=== PATIENT | female | born 1935 | race Caucasian/White ===

== ENCOUNTER 2024-10-02 19:36 | Inpatient (IN) | payer MEDICARE, SELFPAY ==
[2024-10-02] VITALS (22 sets, daily range): BP systolic 164–221; BP diastolic 57–135; PULSE 81–114; RESP 16–27; TEMP 36.4; O2SAT 93–97
--- NOTE | 2024-10-02 19:30 | RT.EKG_ITS ---
APPROVED REPORT Exam: Resting ECG Reason for Exam: chest pressure Patient Location: E HR:99 bpm ECG Measurements Heart Rate 99 AXIS NE 152 P 51 QRSd 88 QRS 39 QT 333 T 28 QTc 427 Conclusion Sinus rhythm...normal P axis, V-rate 60- 99
--- NOTE | 2024-10-02 19:45 | DI.CT_ITS ---
Exam(s) CT BRAIN NECK CTA EXAM: CT BRAIN NECK CTA CLINICAL HISTORY: dizziness, hypertension, headache. TECHNIQUE: Imaging Protocol: Axial CT angiography was performed with multi-slice acquisition and mu lti-planar and/or 3D reconstructions. CONTRAST MATERIAL: Intravenous: Omnipaque 350 Contrast volume:70 mL COMPARISON: CT CT CTA HEAD/NECK W/ AND/OR WO CONT from 09/12/2024 FINDINGS: CTA Neck W: Aortic arch anatomy: The aortic arch anatomy is conventional and there is no significant stenosis at the origin of the great vessels off of the aortic arch. No intimal flap evident. Anterior circulation: There is some noncalcified medial wall plaque again noted in the right common carotid artery. At the level the right carotid bifurcation there is both calcified and noncalcified plaque which extends int o the proximal left ICA and appears similar to the previous outside study of 09/12/2024. The amount o f stenosis at this level is estimated at approximately 50-69 percent (moderate). Above this level the right ICA in the upper neck is patent as well as in the skull base-carotid canal. There is also some plaque on the medial wall of the ascending left common carotid artery. Approximate ly 30 percent stenosis. There is mild mixed plaque evident at the left carotid bifurcation and proxim al left ICA but less than 20 percent stenosis. The left ICA in the upper neck is patent as well as in the skull base-carotid canal. Posterior circulation: Both vertebral arteries originate in conventional fashion off of the subclavian arteries and there is no obvious significant stenosis at the origin of the vertebral arteries. Both vertebral arteries exhibit normal luminal diameters within the foramen transversarium. The left vertebral artery is dominant. No evidence of vertebral artery significant stenosis nor dissection. Both vertebral arteries contribute to the formation of the basilar artery at the skull base. CTA Brain W: Anterior circulation: Both internal carotid arteries are patent in the skull base-carotid canals as well as within the cave rnous sinuses. Supraclinoid aspects of both ICAs are patent. The anterior cerebral arteries are both patent and fed by the right A1 segment and anterior communicating artery. The left A1 segment is atretic. There is n o evidence of aneurysm at the level the anterior communicating artery. Both middle cerebral arteries are patent with no evidence of significant stenosis nor intraluminal th rombus. There also no significant aneurysms of these vessels. Posterior circulation: The basilar artery ascends without significant stenosis. Distally it gives off patent superior cerebe llar arteries. Above this level it terminates as a patent right posterior cerebral artery. The left p osterior cerebral artery is fed by posterior communicating artery on the left side of the nav[place]-of-W illis/persistent circulation. There does appear to be a mild-moderate stenosis in the P1 segment of the right posterior cerebral ar ryan. There is no evidence of aneurysm at the tip of the basilar artery nor elsewhere in the [id number]-ch-[id number] is. CT BRAIN: There is no evidence of intracranial hemorrhage, mass effect, or shift of midline structures. There are no extra-axial fluid collections. Ventricles are not enlarged or shifted. There are no ring enh ancing lesions in the brain and no abnormal meningeal enhancement. There is bilateral periventricular hypodensity consistent with chronic small vessel disease. No evidence of obvious acute infarct. IMPRESSION: 1. There is moderate (50-69 percent) stenosis at the right carotid bulb again noted, similar to previ ous. Lesser amount of stenosis is seen in the left carotid artery in the neck. 2. Patent vertebral arteries. No significant stenosis nor dissection of the vertebral arteries in th e neck. 3. 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 The anterior cerebral arteries are both fed by the right A1 segment/anterior communicating artery. 4. There is a mild-moderate focal stenosis again noted in the P1 segment of the right posterior cereb ral artery. The left posterior cerebral artery is fed by a posterior communicating artery on the left side of the upjmdk-vi-Siemxu/persistent circulation. No aneurysms. No ring enhancing lesions in the brain. No evidence of obvious infarct nor acute intrac ranial hemorrhage, intra or extra-axial. Preliminary virtual Radiology report was reviewed. RADIATION DOSE DELIVERED: 2,119.14mGy.cm Total DLP DATA REPOSITORY: All CT scans at this facility are submitted to the National Radiology Data Registry (NRDR) Dose Index Registry (DIR) with the [employer] (ACR). RADIATION OPTIMIZATION: All CT scans at this facility use at least one of these dose optimization te chniques: automated exposure control; mA and/or kV adjustment per patient size (includes targeted exa ms where dose is matched to clinical indication); or iterative reconstruction.
--- NOTE | 2024-10-02 19:58 | W.ED.GENAD ---
Discharge Plan Disposition Patient Disposition: Admit to [facility] Condition: Stable Discharge Details Chief Complaint: Chest Pain Clinical Impression: Hypertensive urgency, Uncontrolled hypertension, Headache Admit Date/Time: 10/02/24 21:11 Admit Provider: Mehdi Hutchinson Attending Provider: Mehdi Hutchinson Primary Care Provider: Yvette Odom ED Provider: Sumeet Smith General Mode of arrival: ambulatory. Date/Time Provider Initiated Documentation: 10/02/24 19:40. Limitations to Documentation: no limitations. Information obtained by: patient. History of Present Illness 89 year old F presents to the emergency department with the chief complaint of headache, described as severe, Quality is described as stabbing, Patient started experiencing this week(s) (3) and it has been intermittent. No relieving factors improve symptom(s), No exacerbating factors reported . Patient notes chest pain; denies nausea/vomiting and shortness of breath. Patient did receive the following treatments prior to arrival, none Related Data Home Medications ?Medication ?Instructions ?Recorded ?Confirmed acetaminophen 500 mg oral powder 500 mg PO ONCE 10/02/24 10/02/24 packet (Tylenol Extra Strength) amlodipine 5 mg tablet 5 mg PO DAILY 10/02/24 10/02/24 aspirin 325 mg tablet (Jalil 325 mg PO DAILY 10/02/24 10/02/24 Aspirin) cetirizine 10 mg tablet (24Hour 10 mg PO DAILY PRN 10/02/24 10/02/24 Allergy) chlorthalidone 25 mg tablet 25 mg PO DAILY 10/02/24 10/02/24 hydralazine 10 mg tablet 10 mg PO ONCE 10/02/24 10/02/24 lisinopril 10 mg tablet 10 mg PO DAILY 10/02/24 10/02/24 lorazepam 0.5 mg tablet (Ativan) 0.5 mg PO DAILY 10/02/24 10/02/24 meclizine 25 mg chewable tablet 25 mg PO DAILY 10/02/24 10/02/24 (Antivert) ondansetron 4 mg disintegrating 4 mg PO DAILY 10/02/24 10/02/24 tablet pantoprazole 20 mg tablet,delayed 20 mg PO DAILY 10/02/24 10/02/24 release prednisone 20 mg tablet 20 mg PO DAILY 10/02/24 10/02/24 Allergies Allergy/AdvReac Type Severity Reaction Status Date / Time No Known Allergies Allergy Unverified 10/02/24 19:45 General Stated Complaint: Chest Pain NIKOLAI: 3 Review of Systems All systems reviewed & are unremarkable except as noted in HPI and below Constitutional Constitutional: Denies chills, Denies fever(s), Reports headache(s) and Denies weakness ENT Ears, Nose, Mouth, and Throat: Reports dizziness and Reports headache(s) Cardiovascular Cardiovascular: Reports chest pain and Denies dyspnea Respiratory Respiratory: Denies cough and Denies dyspnea Gastrointestinal Gastrointestinal: Denies abdominal pain, Denies nausea and Denies vomiting Neurologic Neurologic: Reports dizziness, Reports headache(s) and Denies weakness Psychiatric Psychiatric: Denies depression Exam Const General: no acute distress Orientation: alert HENMT Head: normal to inspection Ears: external ears normal General nose exam: external nose normal Mouth: moist mucous membranes Eyes General: appearance normal, both eyes and all related structures Neck Neck: normal visual inspection Resp Effort & Inspection: normal respiratory effort and able to speak in complete sentences Auscultation: clear to auscultation bilaterally Cardio Jugular venous pressure: no JVD Rate: regular rate GI Palpation: soft and nontender Skin General skin exam: no rashes or lesions noted Neuro General: patient alert and patient oriented x3 Extrem General: normal to inspection Psych Mental Status: mental status grossly normal Course Vital Signs Vital signs: Vital Signs Pulse 104 H 10/02/24 19:40 Respiratory Rate 18 10/02/24 19:40 Blood Pressure 221/82 H 10/02/24 19:40 Pulse Oximetry 96 10/02/24 19:40 Pulse 99 H 10/02/24 19:50 Pulse 99 H 10/02/24 19:50 Respiratory Rate 24 10/02/24 19:51 Respiratory Effort Normal, Non-Labored 10/02/24 19:51 Respiratory Depth Normal 10/02/24 19:51 Respiratory Pattern Normal 10/02/24 19:51 Blood Pressure 195/135 H 10/02/24 19:49 Blood Pressure Mean 151 10/02/24 19:49 Pulse Oximetry 97 10/02/24 19:50 Oxygen Delivery Method Room Air 10/02/24 19:40 Oxygen Flow Rate 0 10/02/24 19:40 Pain Level 6 10/02/24 19:51 Medical Decision Making 89-year-old female who states she has a history of a CVA years ago, hypertension, who has been having issues with elevated blood pressures and headaches for the past few weeks. She has been seen at [facility] and states she has had testing including MRI and saw teleneurology as had her blood pressure medications adjusted but still has elevated readings and headache so decided to come here for an evaluation today. She says she has a burning sensation in her chest and gets frequent heartburn. She has no weakness, no changes in vision or speech. She localizes the pain to the posterior head. She has no drift, cranial nerves II through XII are intact. She has an NIH of 0 on my exam. She does states that she gets intermittently dizzy as well. She has noted to be hypertensive to 221 systolic initially. Concern for possible hypertensive emergency, I will treat with nicardipine and get a CTA of the head and neck to evaluate for hemorrhage versus aneurysm, will also check CBC, CMP and troponins. Patient's blood pressure lowered to 171/77 prior to nicardipine being started and I suspect this is from the hydralazine dose that she took at home prior to coming here. Labs and imaging without acute findings. Patient is still feeling dizzy and has a mild headache. Given the significant hypertension will discuss with hospitalist but admission for observation. Differential Diagnosis Differential Diagnosis: Hypertensive emergency, acid reflux, NSTEMI Lab Data Lab results reviewed: Yes I reviewed the patient's lab results. ECG Data Attestation: I personally reviewed and interpreted this ECG (s) as follows: Prior ECG tracings: not available for review Interpretation: sinus rate of 99 pr 152 no stemi Quality:SDOH Health Related Social Needs: No Data to Display [facility] All Active Problems (Updated 10/02/24 @ 21:53 by Sumeet Smith MD) Headache (Acute) Uncontrolled hypertension (Acute) Hypertensive urgency (Acute) Social History Smoking risk assessment performed?: No Drug use: Never Substance use type: does not use Housing: house Do you feel safe at home: Yes Do you feel safe in your relationship?: Yes
[2024-10-02 20:02] LABS: Abs Immature Grans 0.01 10^3/uL (0.0-0.06); Absolute Basophil Count 0.02 10^3/uL (0.0-0.2); Absolute Eosinophil Count 0.03 10^3/uL (0.0-0.7); Absolute Lymphocyte Count 1.28 10^3/uL (1.2-3.4); Absolute Neutrophil Count 5.84 10^3/uL (1.2-6.7); Basophils % 0.3 %; Eosinophils % 0.4 %; HGB 12.9 g/dL (11.2-15.7); Immature Grans % 0.1 %; Lymphocytes % 17.3 %; MCH 33.5 pg (27.0-33.0); MCHC 35.8 % (32.0-36.0); MCV 94 fL (80-95); MPV 9.7 fL (8.0-11.0); Monocytes % 2.7 %; Neutrophils % 79.2 %; Platelet Count 364 10^3/uL (130-400); RBC 3.85 10^6/uL (3.93-5.22); RDW 11.3 % (11.7-14.6); RDW-SD 38.3 fL; WBC 7.38 10^3/uL (4.4-10.8)
[2024-10-02] MEDS: Omnipaque 350 MG/ML 100 ML BTL 70 ML IJ (20:15)
[2024-10-02] MEDS: Normal Saline - Diluent 50 ML VIAL IJ (20:15)
[2024-10-02 20:16] LABS: PTT Activated 25.6 sec (20.6-30.2); Prothrombin Time 9.7 sec (9.1-11.1)
[2024-10-02 20:29] LABS: ALT 54 U/L (14-59); AST 52 U/L (15-37); Albumin 4.6 g/dL (3.4-5.0); Alkaline Phosphatase 112 U/L (46-116); Anion Gap 12.2 mmol/L (3-11); BUN 20 mg/dL (7-18); Bilirubin, Total 0.4 mg/dL (0.2-1.0); CO2 26.8 mmol/L (21.0-32.0); CREATININE 1.1 mg/dL (0.55-1.02); Calcium 11.3 mg/dL (8.5-10.1); Chloride 89 mmol/L (98-107); Estimated GFR 48.63 (mL/min/1.73m2); Glucose 154 mg/dL (74-106); Lipase 55 U/L (<78); Magnesium 1.6 mg/dL (1.8-2.4); NT-proBNP 211 pg/mL (<300); Potassium 4.6 mmol/L (3.5-5.1); Sodium 128 mmol/L (136-145); Total Protein 8.4 g/dL (6.4-8.2); Troponin I 7 ng/L (<or=51)
[2024-10-02 20:47] LABS: Procalcitonin < 0.10 ng/mL
--- NOTE | 2024-10-02 21:02 | DI.VRAD_ITS ---
Addendum created by Cuong Metzger MD on 10/02/2024 9:02:19 PM EDT: THIS REPORT CONTAINS FINDINGS THAT MAY BE CRITICAL TO PATIENT CARE. The findings were verbally communicated via telephone conference with Sumeet Smith at 9:02 PM EDT on 10/02/2024. The findings were acknowledged and understood. Initial report created on 10/02/2024 9:02:03 PM EDT: PROCEDURE INFORMATION: Exam: CT Angiography Head Without And With Contrast Exam date and time: 10/02/2024 8:16 PM Age: 89 years old Clinical indication: Stroke-like symptoms; Dizziness/giddiness and headache; Additional info: Dizziness, hypertension, headache TECHNIQUE: Imaging protocol: Computed tomographic angiography of the head without and with contrast. 3D rendering (Not supervised by radiologist): MIP and/or 3D reconstructed images were created by the technologist. Radiation optimization: All CT scans at this facility use at least one of these dose optimization techniques: automated exposure control; mA and/or kV adjustment per patient size (includes targeted exams where dose is matched to clinical indication); or iterative reconstruction. Contrast material: OMNIPAQUE 350; Contrast volume: 70 ml; Contrast route: INTRAVENOUS (IV); Other technique: STROKE PROTOCOL was implemented. COMPARISON: CT CTA HEAD/NECK W/ AND/OR WO CONT 09/12/2024 7:55 PM FINDINGS: Limitations: Suboptimal imaging. Limited evaluation. ANTERIOR CIRCULATION: Right internal carotid artery: No definite occlusion. Right middle cerebral artery: No definite occlusion. Right anterior cerebral artery: No definite occlusion. Left internal carotid artery: No definite occlusion. Left middle cerebral artery: No definite occlusion. 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 No aneurysm. POSTERIOR CIRCULATION: Right vertebral artery: No definite occlusion. Left vertebral artery: No definite occlusion. Basilar artery: No definite occlusion. Right posterior cerebral artery: No definite occlusion. Left posterior cerebral artery: origin of the left posterior cerebral artery is a common developmental variant and there is no occlusion or significant stenosis. No aneurysm. Brain: Cerebral atrophy and probable underlying microvascular ischemic changes are evident with no intracranial mass, acute transcortical infarction or recent intracranial hemorrhage detected. Cerebral ventricles: No midline shift or hydrocephalus. Mastoid air cells: Grossly clear bilaterally. Paranasal sinuses: Grossly clear throughout. Bones/joints: No acute fracture. IMPRESSION: 1. 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 2. No large vessel stenosis or occlusion detected involving the major branches of the anterior or posterior intracranial circulation. 3. Cerebral atrophy and probable underlying microvascular ischemic changes are evident with no intracranial mass, acute transcortical infarction or recent intracranial hemorrhage detected. ASSESSMENT: ASPECTS (Rachel Stroke Program Early CT Score) is 10. PROCEDURE INFORMATION: Exam: CTA Neck Without And With Contrast Exam date and time: 10/02/2024 8:16 PM Age: 89 years old Clinical indication: Stroke-like symptoms; Dizziness/giddiness and headache; Additional info: Dizziness, hypertension, headache TECHNIQUE: Imaging protocol: Computed tomographic angiography of the neck without and with contrast. Exam focused on the cervical segments of the vasculature. 3D rendering (Not supervised by radiologist): MIP and/or 3D reconstructed images were created by the technologist. Radiation optimization: All CT scans at this facility use at least one of these dose optimization techniques: automated exposure control; mA and/or kV adjustment per patient size (includes targeted exams where dose is matched to clinical indication); or iterative reconstruction. Contrast material: OMNIPAQUE 350; Contrast volume: 70 ml; Contrast route: INTRAVENOUS (IV); COMPARISON: CT CTA HEAD/NECK W/ AND/OR WO CONT 09/12/2024 7:55 PM FINDINGS: Right common carotid artery: No stenosis. No dissection or occlusion. Right internal carotid artery: Mixed plaque is seen at the right carotid bifurcation and involving the origin of the right internal carotid artery with moderate focal stenosis seen at the origin of the right internal carotid artery. There is no evidence of 50% or greater stenosis seen involving the remainder of the extracranial segment of the right ICA. No dissection or occlusion. Right external carotid artery: No occlusion or stenosis of the origin. Left common carotid artery: No stenosis. No dissection or occlusion. Left internal carotid artery: No stenosis of the extracranial segment. No dissection or occlusion. Left external carotid artery: No occlusion or stenosis of the origin. Right vertebral artery: No stenosis. No dissection or occlusion. Left vertebral artery: No stenosis. No dissection or occlusion. Soft tissues: Normal. No significant soft tissue swelling. Bones/joints: No acute fracture. IMPRESSION: 1. Mixed plaque is seen at the right carotid bifurcation and involving the origin of the right internal carotid artery with moderate focal stenosis seen at the origin of the right internal carotid artery, estimated in the range of 50-69% by NASCET criteria. There is no evidence of 50% or greater stenosis seen involving the remainder of the extracranial segment of the right ICA. 2. No evidence of 50% or greater stenosis seen for the cervical segment of the left internal carotid artery by NASCET criteria. REFERENCES: NASCET CRITERIA. The degree of stenosis in the cervical segment of the internal carotid artery is based on NASCET criteria. Normal is no stenosis. Mild is less than 50% stenosis. Moderate is 50-69% stenosis. Severe is 70% to 99% stenosis. Total occlusion is no detectable patent lumen. Dictated and Authenticated by: Cuong Metzger MD. Orderin Luis Fay MD
--- NOTE | 2024-10-02 21:11 | HPE_ITS ---
Date of service: 10/02/24 Time of Service: 21:12 Assessment and Plan Assessment and plan (1) Hypertensive urgency: Status: Acute Assessment and plan: - Patient initially had blood pressure of 190 at home followed by 220 systolic in the emergency department - However, it improved without any additional intervention as patient did take 10 mg p.o. hydralazine prior to arrival - Will continue home 5 mg amlodipine, 25 mg chlorthalidone, 10 mg lisinopril and make adjustments based on blood pressures overnight - 10 mg IV hydralazine every 6 hours as needed for systolic blood pressure sustained over 180 (2) Vertigo: Status: Acute Assessment and plan: - Patient states she has history of vertigo with active vertigo at this time - Also states that she has been told she has crystals in her ears - Appreciate PT evaluation for Pancho and Julio-Hallpike (3) History of CVA (cerebrovascular accident): Status: Acute Assessment and plan: - History of, without residual deficits - Continue home aspirin - Patient does not appear to be on statin therapy, recommend discussing with patient and initiating therapy History of Present Illness History of Present Illness Chief Complaint: high BP, CHILDS, dizziness Narrative: 89yo female with PMH hypertension, vertigo and CVA who presents to the emergency department with issues with her blood pressure and headaches. She states that she was seen at [facility] and had testing including MRI having seen teleneurology and her blood pressure medications adjusted but decided to come back in [address] [place] [address] today for further evaluation given ongoing elevated blood pressures and headaches. She denies any weakness, lightheadedness but does complain of some spinning consistent with her vertigo as well as a headache which is not normal. She also noted that her blood pressure was 190 which is what prompted her to present to the emergency department. Prior to arrival patient did take her as needed hydralazine in addition to her scheduled daily amlodipine, chlorthalidone and lisinopril. In the emergency department she was noted as having normal physical exam with an NIH of 0 and normal vital signs with the exception of an initial systolic blood pressure of 221 which improved on its own without any intervention as patient's blood pressure improved down to 180 and then 160 after coming back from head [facility]. CBC and CMP were also unremarkable. However, despite patient's blood pressure having improved she continued to have headache and dizziness and given ongoing issues with her blood pressure control it was thought best for her to remain hospitalized. Which time emergency room physician paged hospitalist for admission for patient with hypertensive urgency and vertigo. Review of Systems All systems reviewed & are unremarkable except as noted in HPI and below PFSH All Active Problems (Updated 10/02/24 @ 22:52 by Mehdi Hutchinson MD) History of CVA (cerebrovascular accident) (Acute) Vertigo (Acute) Headache (Acute) Uncontrolled hypertension (Acute) Hypertensive urgency (Acute) Social History Smoking risk assessment performed?: No Drug use: Never Substance use type: does not use Housing: house Do you feel safe at home: Yes Do you feel safe in your relationship?: Yes Meds Allergies and Home Medications Allergies Allergy/AdvReac Type Severity Reaction Status Date / Time No Known Allergies Allergy Unverified 10/02/24 19:45 Home Medications ?Medication ?Instructions ?Recorded ?Confirmed ?Type acetaminophen 500 mg oral powder 500 mg PO ONCE 10/02/24 10/02/24 History packet (Tylenol Extra Strength) amlodipine 5 mg tablet 5 mg PO DAILY 10/02/24 10/02/24 History aspirin 325 mg tablet (Jalil 325 mg PO DAILY 10/02/24 10/02/24 History Aspirin) cetirizine 10 mg tablet (24Hour 10 mg PO DAILY PRN 10/02/24 10/02/24 History Allergy) chlorthalidone 25 mg tablet 25 mg PO DAILY 10/02/24 10/02/24 History hydralazine 10 mg tablet 10 mg PO ONCE 10/02/24 10/02/24 History lisinopril 10 mg tablet 10 mg PO DAILY 10/02/24 10/02/24 History lorazepam 0.5 mg tablet (Ativan) 0.5 mg PO DAILY 10/02/24 10/02/24 History meclizine 25 mg chewable tablet 25 mg PO DAILY 10/02/24 10/02/24 History (Antivert) ondansetron 4 mg disintegrating 4 mg PO DAILY 10/02/24 10/02/24 History tablet pantoprazole 20 mg tablet,delayed 20 mg PO DAILY 10/02/24 10/02/24 History release prednisone 20 mg tablet 20 mg PO DAILY 10/02/24 10/02/24 History Exam Narrative Exam Narrative: Well-appearing older female laying in bed in mild distress due to headache, ANO x 4, heart regular rhythm, lungs good auscultation bilaterally, abdomen soft, nontender, nondistended Results Labs 10/02/24 19:45 10/02/24 19:45 Labs: Laboratory Results - last 24 hr 10/02/24 19:45 WBC 7.38 RBC 3.85 L Hgb 12.9 Hct 36.0 MCV 94 MCH 33.5 H MCHC 35.8 RDW 11.3 L Plt Count 364 MPV 9.7 Immature Gran % 0.1 Neutrophils % 79.2 Lymphocytes % 17.3 Monocytes % 2.7 Eosinophils % 0.4 Basophils % 0.3 Nucleated RBC % 0.0 Absolute Neutrophils 5.84 Absolute Lymphocytes 1.28 Absolute Monocytes 0.20 Absolute Eosinophils 0.03 Absolute Basophils 0.02 PT 9.7 INR 1.0 APTT 25.6 Sodium 128 L Potassium 4.6 Chloride 89 L Carbon Dioxide 26.8 Anion Gap 12.2 H BUN 20 H Creatinine 1.1 H Est GFR (CKD-EPI 2020) 48.63 Glucose 154 H Calcium 11.3 H Magnesium 1.6 L Total Bilirubin 0.4 AST 52 H ALT 54 Alkaline Phosphatase 112 Troponin I 7 NT-Pro-B Natriuret Pep 211 Total Protein 8.4 H Albumin 4.6 Lipase 55 Procalcitonin < 0.10 Last Vital Signs Pulse 88 10/02/24 20:01 Resp 27 H 10/02/24 20:01 BP 184/76 H 10/02/24 20:01 Pulse Ox 96 10/02/24 20:01 Time Spent Time spent with Patient: >75 minutes Time was spent: preparing to see the patient(eg.review tests), obtaining and/or reviewing separately otained hiistory, ordering medications,tests, procedures, referring, communicating with other health hospice care sales consultant, indepentently interpreting results, counseling the patient and care coordination
[2024-10-02] MEDS: Meclizine 25 MG TAB PO (21:28)
--- NOTE | 2024-10-02 21:36 | W.PC.ACHO ---
Registration Status: Primary Language: Preferred Language: ED Information & Data Chief Complaint Chest Pain 10/02/24 20:03 Triage Note headache, dizziness, chest 10/02/24 19:40 pressure, and acid reflux started Amlodipine today took hydrolazine approx 1700 for high BP HX Stroke x3 yrs ago. Most Recent Vital Signs Pulse 83 10/02/24 21:20 Pulse 83 10/02/24 21:20 Respiratory Rate 17 10/02/24 21:20 Respiratory Effort Normal, Non-Labored 10/02/24 19:51 Respiratory Depth Normal 10/02/24 19:51 Respiratory Pattern Normal 10/02/24 19:51 Blood Pressure 164/68 H 10/02/24 21:16 Blood Pressure Mean 95 10/02/24 21:16 Pulse Oximetry 93 10/02/24 21:20 Oxygen Delivery Method Room Air 10/02/24 19:40 Oxygen Flow Rate 0 10/02/24 19:40 Pain Level 6 10/02/24 19:51 Allergies No Known Allergies Allergy (Unverified 10/02/24 19:45) Precautions Isolation Standard precaution 10/02/24 19:51 Active Medications Generic Name Dose Route Start Last Admin Trade Name Freq PRN Reason Stop Dose Admin Iohexol 70 ml 10/02/24 20:15 10/02/24 20:15 Omnipaque 350 Mg/Ml 100 Ml Btl IJ 11/01/24 23:59 70 ml DIRECTED EBEN Administration Sodium Chloride 50 ml 10/02/24 20:15 10/02/24 20:15 Normal Saline - Diluent 50 Ml Vial IJ 50 ml .FOR DI USE EBEN Administration IV IV Catheter Type [Right Saline Lock Antecubital] IV Catheter Gauge [Right 18 Antecubital] Diagnostics 10/02/24 10/02/24 10/02/24 Range/Units 22:46 21:00 19:45 WBC 7.38 (4.4-10.8) 10^3/uL RBC 3.85 L (3.93-5.22) 10^6/uL Hgb 12.9 (11.2-15.7) g/dL Hct 36.0 (36.0-46.0) % MCV 94 (80-95) fL MCH 33.5 H (27.0-33.0) pg MCHC 35.8 (32.0-36.0) % RDW 11.3 L (11.7-14.6) % Plt Count 364 (130-400) 10^3/uL MPV 9.7 (8.0-11.0) fL Immature Gran % 0.1 % Neutrophils % 79.2 % Lymphocytes % 17.3 % Monocytes % 2.7 % Eosinophils % 0.4 % Basophils % 0.3 % Nucleated RBC % 0.0 (0.0-0.3) % Absolute Neutrophils 5.84 (1.2-6.7) 10^3/uL Absolute Lymphocytes 1.28 (1.2-3.4) 10^3/uL Absolute Monocytes 0.20 (0.1-0.8) 10^3/uL Absolute Eosinophils 0.03 (0.0-0.7) 10^3/uL Absolute Basophils 0.02 (0.0-0.2) 10^3/uL PT 9.7 (9.1-11.1) sec INR 1.0 (0.9-1.1) APTT 25.6 (20.6-30.2) sec Sodium 128 L (136-145) mmol/L Potassium 4.6 (3.5-5.1) mmol/L Chloride 89 L (98-107) mmol/L Carbon Dioxide 26.8 (21.0-32.0) mmol/L Anion Gap 12.2 H (3-11) mmol/L BUN 20 H (7-18) mg/dL Creatinine 1.1 H (0.55-1.02) mg/dL Est GFR (CKD-EPI 2020) 48.63 (mL/min/1.73m2) Glucose 154 H (74-106) mg/dL Calcium 11.3 H (8.5-10.1) mg/dL Magnesium 1.6 L (1.8-2.4) mg/dL Total Bilirubin 0.4 (0.2-1.0) mg/dL AST 52 H (15-37) U/L ALT 54 (14-59) U/L Alkaline Phosphatase 112 (46-116) U/L Troponin I Pending Pending 7 (<or=51) ng/L NT-Pro-B Natriuret Pep 211 (<300) pg/mL Total Protein 8.4 H (6.4-8.2) g/dL Albumin 4.6 (3.4-5.0) g/dL Lipase 55 (<78) U/L Procalcitonin < 0.10 ng/mL Intake and Output - 24 Hour Total 10/02/24 19:36 thru 10/02/24 19:45 Intake Total 10 Balance 10 Weight 71.2 kg Intake: IV 10 Falls Risk Assessment History of Falls No History 10/02/24 19:51 Contributing Factors No Factors 10/02/24 19:51 Ambulatory Aids Uses ambulatory device 10/02/24 19:51 Tubes/Lines None 10/02/24 19:51 Gait Evaluation W/any additional score 10/02/24 19:51 Cognition No cognitive impairment 10/02/24 19:51 Fall Total Score 35 10/02/24 19:51 Level of Risk Moderate Risk 10/02/24 19:51 Problems Uncontrolled hypertension (Acute) Hypertensive urgency (Acute) v v v v v v v v v Sending and/or Receiving Nurses: Please use comment section below to note any information pertinent to the patient hand-off not included above. 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 came in to ER with high B/P; chest pressure due to acid reflux and still with headache.. Her baseline is living independently at home. First troponin was negative, the 2nd was sent to lab now. GI cocktail and meclizine given there. Latest B/P is 164/68. All questions asked answered appropiately. Report received from:
[2024-10-02 21:39] LABS: Troponin I 9 ng/L (<or=51)
[2024-10-02] MEDS: Docusate Sodium 100 MG CAP PO (22:22)
[2024-10-02] MEDS: Normal Saline Flush 10 ML SYR IVP (22:22)
[2024-10-02] MEDS: Acetaminophen 325 MG TAB PO (22:22)
[2024-10-02 23:18] LABS: Troponin I 9 ng/L (<or=51)
[2024-10-02 23:45] LABS: Bilirubin Negative (Negative); Blood Negative (Negative); Clarity Clear (Clear); Glucose Negative (Negative); Ketones Negative (Negative); Leukocyte Esterase Negative (Negative); Nitrite Negative (Negative); Urobilinogen 0.2 mg/dL (Up to 0.2)
[2024-10-02] MEDS: LORazepam 20 MG/10 ML VIAL IVP (23:49)
[2024-10-03] VITALS (9 sets, daily range): BP systolic 117–147; BP diastolic 59–77; PULSE 71–80; RESP 14–19; TEMP 36–36.7; O2SAT 94–98
[2024-10-03] MEDS: Acetaminophen 325 MG TAB PO ×2 (06:18→10:12)
[2024-10-03 06:36] LABS: HCT 30.6 % (36.0-46.0); HGB 10.6 g/dL (11.2-15.7); MCH 32.7 pg (27.0-33.0); MCHC 34.6 % (32.0-36.0); MCV 94 fL (80-95); MPV 9.9 fL (8.0-11.0); Platelet Count 266 10^3/uL (130-400); RBC 3.24 10^6/uL (3.93-5.22); RDW 11.5 % (11.7-14.6); RDW-SD 39.2 fL
[2024-10-03 06:56] LABS: Anion Gap 9.1 mmol/L (3-11); BUN 19 mg/dL (7-18); CO2 26.9 mmol/L (21.0-32.0); Calcium 9.7 mg/dL (8.5-10.1); Chloride 93 mmol/L (98-107); Estimated GFR 54.53 (mL/min/1.73m2); Glucose 103 mg/dL (74-106); Magnesium 1.7 mg/dL (1.8-2.4); Potassium 4.8 mmol/L (3.5-5.1); Sodium 129 mmol/L (136-145)
[2024-10-03] MEDS: Pantoprazole 20 MG TABCR PO (08:04)
[2024-10-03] MEDS: amLODIPine 5 MG TAB PO (08:57)
[2024-10-03] MEDS: LORazepam 0.5 MG TAB PO (08:57)
[2024-10-03] MEDS: Enoxaparin 40 MG/0.4 ML SYR SC (08:57)
[2024-10-03] MEDS: Lisinopril 10 MG TAB PO (08:58)
[2024-10-03] MEDS: Chlorthalidone 25 MG TAB PO (08:58)
[2024-10-03] MEDS: Docusate Sodium 100 MG CAP PO (08:58)
[2024-10-03] MEDS: Normal Saline Flush 10 ML SYR IVP ×2 (08:58→21:05)
--- NOTE | 2024-10-03 09:33 | INITIAL_ITS ---
Date of service: 10/03/24 Time of Service: 09:34 Care Management Initial Assmt Initial Assessment Reason for Hospitalization: Hypertensive urgency Functional Status/Living Situation Patient Presentation: Mildred was lying in bed when CM met with her. She was pleasant in manner and engaged well with CM. Mildred was admitted with hypertension and vertigo. She informed that she has had vertigo since 08/21/24 and has had a headache much of that time, making it impossible to carry on her daily routines. She is used to being very active and continues to golf 4 days a week when in [place] and walks 2 miles almost every day. Mildred informed that she has been waiting for an appointment with PT to receive treatment for the vertigo and is also scheduled to see a neurologist but not until October. She admitted that she is finding the long appointment wait times challenging as the quality of her life is so adversely affected right now. Mildred lives in [place] in a single family home built by her many years ago. She has one daughter, Nadia, who is a retired hebrew teacher, one granddaughter who is an accountant supervisor and a 4 year old great granddaughter. Mildred spends 6 months of the year in [place] and the other 6 months in [place]. Her daughter, with whom she is very close, spends 9 months in [place] and 3 months in [place];their homes are close to each other in both locations. 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[place]) Instrumental Activities of Daily Living (ADLs): Independent Medications Medication Management: No Issues/Barriers identified Physical Functioning/Mobility Assistive Device: none Advance Directives Advance Directives: Do you have an Advance Directive: N 10/02/24 20:48 AD On File at [facility]: N 10/02/24 19:51 Date Asked 10/02/24 10/02/24 19:51 AD Date Reviewed COLST On File at [facility] COLST Date Scanned Code Status Resuscitation Status Full Code Portal Pt does not currently have a portal and education provided: Yes Insurance Coverage/Financial Issues Insurance: Medicare self pay Care Team Visit Care Team Role Provider Type Ivette Ruiz NP MD [facility] STAFF PHYSICIAN Yvette Odom MD Primary Care Provider NON-[facility] STAFF PHYSICIAN Sumeet Smith MD Emergency Provider [facility] STAFF PHYSICIAN Mehdi Hutchinson MD Admit Provider [facility] STAFF PHYSICIAN Attending Provider Discharge Potential Discharge Needs: PCP F/U Appt Anticipated Barriers to Discharge: None Identified Patient/Family Education Needs: Review discharge instructions, discuss Ask Me Three Transportation: Private vehicle Plan: Anticipate Mildred will be discharged home, possibly with new home health services, when medically cleared. She will follow up with her community providers and plan of care and transport with family. CM will follow and continue to assess for discharge needs.p Social Determinants of Health Screening Social Determinants of health last assessed in clinic: 10/03/24 Will the Patient Participate in the Screening?: Yes Do you worry about having a steady place to live?: yes What is your living situation today?: I have housing today, but am worried about losing it Problems where you live: no known problems In the past 12 months, have you had to go without electric, gas, oil or water in your home?: no 1. Within the past 12 months, we worried whether our food would run out before we got money to buy more.: Never true 2. Within the past 12 months, the food we bought just didn't last and we didn't have money to get more.: Never true Has lack of transportation kept you from medical appointments or from doing things needed for daily living?: no Has anyone in your life made you feel unsafe or unsupported?: no How hard is it for you to pay for the very basics like food, housing, medical care, and heating? Would you say it is:: Not hard at all Do you want help finding or keeping work or a job?: I do not need or want help If for any reason you need help with day-to-day activities such as bathing, preparing meals, shopping, managing finances, etc., do you get the help you need?: I don?t need any help How often do you feel lonely or isolated from those around you?: Never Do you speak a language other than Tajik at home?: No Does the patient want assistance with any of the above?: No Health Related Social Needs Health related social needs: housing instability, housed, with risk of homelessness (Z59.811) Health related social needs details: very much healthy except when she got this vertigo. PFSH All Active Problems (Updated 10/02/24 @ 22:52 by Mehdi Hutchinson MD) History of CVA (cerebrovascular accident) (Acute) Vertigo (Acute) Headache (Acute) Uncontrolled hypertension (Acute) Hypertensive urgency (Acute) Social History Smoking risk assessment performed?: No Drug use: Never Substance use type: does not use Housing: house Do you feel safe at home: Yes Do you feel safe in your relationship?: Yes
--- NOTE | 2024-10-03 13:26 | CHAPLAIN ---
Mildred was resting in bed with an ice pack on her forehead. She has two visitors with her. Mildred was dealing with a headache. I explained my role and offered support. I didn't stay long as Mildred was clearly uncomfortable.
[2024-10-03] MEDS: Ketorolac 15 MG/ML VIAL IVP (13:32)
--- NOTE | 2024-10-03 14:43 | W.PM.PROGNOT ---
Date of Service Date of service: 10/03/24 Time of Service: 14:43 Assessment and Plan Assessment and plan (1) Hypertensive urgency: Status: Acute Assessment and plan: Continue home meds, she did not need any additional medications for her blood pressure today. (2) Vertigo: Status: Acute Assessment and plan: Patient states she has history of vertigo and take meclizine daily with occasional ondansetron PT evaluation ordered for Pancho and Marcellus-Hallpike (3) History of CVA (cerebrovascular accident): Status: Acute Assessment and plan: History of, without residual deficits Continue home aspirin Start atorvastatin 40 mg daily. (4) Headache: Status: Acute Assessment and plan: CT scan of the head in ED no acute findings tylenol - marginal relief of headache, Ketorolac for headache given with good relief Subjective Subjective Patient reports: no new complaints, tolerating liquids well, tolerating a regular diet, voiding w/o difficulty and bowel movement; denies diarrhea, nausea, vomiting or shortness of breath Interval history since last seen: Patient complained of a headache earlier in the day, she states she gets headaches frequently and this is not unlike the others. Exam Narrative Exam Narrative: Constitutional: Alert and oriented x3. Appears stated age. Normal body habitus. Head: Normocephalic, no trauma. Eyes: Pupils PERRL, Red reflex noted, EOM's intact. Eyelids symmetrical without lesions, discharge, or swelling. Chest: RRR, Normal S1, S2, distal pulses intact. Resp: Lungs clear to auscultation bilaterally, no wheezes, rales, or rhonchi. Abdomen: Soft, non-distended, bowel sounds present Musculoskeletal: Normal gait, 5/5 strength to all four extremities. Skin: No suspicious rashes or lesions. Capillary refill less than 2 sec. Neurologic: Cranial nerves II-XII intact. Alert and oriented x 3. Motor: No deficits noted. Sensory: Intact bilaterally all 4 extremities. Hematologic/Lymphatic: No ecchymosis, no lymphadenopathy. Const General: no acute distress Orientation: alert [facility] Head: normal to inspection Ears: external ears normal General nose exam: external nose normal Mouth: moist mucous membranes Eyes General: appearance normal, both eyes and all related structures Neck Neck: normal visual inspection Resp Effort & Inspection: normal respiratory effort and able to speak in complete sentences Auscultation: clear to auscultation bilaterally Cardio Jugular venous pressure: no JVD Rate: regular rate Other: no chest pain GI Palpation: soft and nontender Skin General skin exam: no rashes or lesions noted Neuro General: patient alert and patient oriented x3 Extrem General: normal to inspection Psych Mental Status: mental status grossly normal Objective Last Vital Signs Temp 36.1 C L 10/03/24 13:11 Pulse 72 10/03/24 13:11 Resp 17 10/03/24 13:11 BP 140/60 10/03/24 13:11 Pulse Ox 98 10/03/24 13:11 Laboratory Results - last 24 hr 10/02/24 10/02/24 10/02/24 19:45 21:00 22:50 WBC 7.38 RBC 3.85 L Hgb 12.9 Hct 36.0 MCV 94 MCH 33.5 H MCHC 35.8 RDW 11.3 L Plt Count 364 MPV 9.7 Immature Gran % 0.1 Neutrophils % 79.2 Lymphocytes % 17.3 Monocytes % 2.7 Eosinophils % 0.4 Basophils % 0.3 Nucleated RBC % 0.0 Absolute Neutrophils 5.84 Absolute Lymphocytes 1.28 Absolute Monocytes 0.20 Absolute Eosinophils 0.03 Absolute Basophils 0.02 PT 9.7 INR 1.0 APTT 25.6 Sodium 128 L Potassium 4.6 Chloride 89 L Carbon Dioxide 26.8 Anion Gap 12.2 H BUN 20 H Creatinine 1.1 H Est GFR (CKD-EPI 2020) 48.63 Glucose 154 H Calcium 11.3 H Magnesium 1.6 L Total Bilirubin 0.4 AST 52 H ALT 54 Alkaline Phosphatase 112 Troponin I 7 9 9 NT-Pro-B Natriuret Pep 211 Total Protein 8.4 H Albumin 4.6 Lipase 55 Procalcitonin < 0.10 Urine Color Urine Clarity Urine pH Ur Specific Harshaw Urine Protein Urine Ketones Urine Blood Urine Nitrite Urine Bilirubin Urine Urobilinogen Ur Leukocyte Esterase Urine Glucose 10/02/24 10/03/24 23:35 06:01 WBC 6.70 RBC 3.24 L Hgb 10.6 L D Hct 30.6 L MCV 94 MCH 32.7 MCHC 34.6 RDW 11.5 L Plt Count 266 MPV 9.9 Immature Gran % Neutrophils % Lymphocytes % Monocytes % Eosinophils % Basophils % Nucleated RBC % Absolute Neutrophils Absolute Lymphocytes Absolute Monocytes Absolute Eosinophils Absolute Basophils PT INR APTT Sodium 129 L Potassium 4.8 Chloride 93 L Carbon Dioxide 26.9 Anion Gap 9.1 BUN 19 H Creatinine 1.0 Est GFR (CKD-EPI 2020) 54.53 Glucose 103 Calcium 9.7 Magnesium 1.7 L Total Bilirubin AST ALT Alkaline Phosphatase Troponin I NT-Pro-B Natriuret Pep Total Protein Albumin Lipase Procalcitonin Urine Color Yellow Urine Clarity Clear Urine pH 7.0 Ur Specific Harshaw 1.010 Urine Protein Negative Urine Ketones Negative Urine Blood Negative Urine Nitrite Negative Urine Bilirubin Negative Urine Urobilinogen 0.2 Ur Leukocyte Esterase Negative Urine Glucose Negative Time Spent with Patient Time Spent with Patient: 25-34 minutes Time was spent: preparing to see the patient(eg.review tests), ordering medications,tests, procedures, referring, communicating with other health hospice patient care secretary, indepentently interpreting results, counseling the patient and care coordination
--- NOTE | 2024-10-03 15:09 | PT.INIE ---
PT Notes Visit Reasons: HTN Urgency Physical Therapy Inpatient Initial Evaluation Date: 10/03/2024 Referring Doctor: Ivette Ruzi NP PT Orders: PT CONSULT: Pancho maneuver pls Precautions: Fall. Standard. Activity as tolerated. Patient Profile/Admitting Diagnosis: Mildred is an 89-year-old female with past medical history significant for previous CVA without residual deficits who presented to the Ed on 10/02/2024 due to high blood pressure and headache accompanied by neck ache. She was originally seen at [facility] where she had an MRI and teleneurology consultation. She was sent home with an adjusted blood pressure medication but family decided to bring her down due to persistent hypertension and headache. On Wednesday, she complained of dizziness when she would turn on her right side. Son-in-law and daughter tried doing the Pancho maneuver they watched on Youtube on the patient but her symptoms remained. Here at ED her blood pressure was managed but her headache and dizziness persisted. PMHX: All Active Problems (Updated 10/02/24 @ 22:52 by Mehdi Hutchinson MD) History of CVA (cerebrovascular accident) (Acute) Vertigo (Acute) Headache (Acute) Uncontrolled hypertension (Acute) Hypertensive urgency (Acute) Social History/Home Situation: Lives alone in a priavte home. Daughter and son-in-law live close by and are great support. independent with delma spects of ADLs prior to admisison. Likes to play golf. Equipment Owned/DME: None Subjective: Per patient and daughter, patient has had dizziness spells since she returned back to [place] from [facility] in August. This past Wednesday, patient's symptoms were worse. Her dizziness seemed to be triggered every time she rolls onto her R side which has been her natural tendency as her TV at home is on that side. Son-in-law and daughter were trying out the Pancho maneuver they saw on youtube but as her symptoms worsened, they needed to bring her to the ED. Patient has been taking Meclizine with last intake on Wednesday around 1 PM. Patient reported headache in the back of her neck and top of her head since onset of symptoms. Onset: On and off since onset back in August with exacerbation this past Wednesday Quality: Room-spinning sensation Duration: Since exacerbation on Wednesday has been constant with turning to R until today's assessment Previous Episodes: Has been on and off since August Exacerbating Factors: Side-lying to R Headache: Severe headache on B parietotemporal areas since onset with hypertensive episode as well Neck ache: Yes with hypertensive episode as well Nausea/Vomitting: None Hearing Loss: None Tinnitus: None Fullness in Ear: Resolved since [facility] did removal of impacted earwax prior to transfer here Imbalance: Mild with FWW Red Flags: Visual changes: None Dysphagia or Dysarthria: None Facial Weakness: None Incoordination: None Prior Level of Function: Independent with all ADLs Current Level of Function: Anxious about moving, has not gotten OOB yet since arrival Previous Treatment: None OBJECTIVE: Posture: Good upright posturing Observation: resting in bed. Telemetry monitoring in place Mental Status: A and O x 4 Vital Signs: Closely monitored by nursing staff ROM: Cervical ROM: WFL Strength: Cervical muscle strength:4-/5 Bed Mobility/Transfers: Rolling modified independent Supine to sit modified independent Sit to supine modified independent Sit to stand contact guard assist with FWW Stand to sit contact guard assist with FWW Gait: Deferred until next visit Special Tests: Rhomberg: Mediolateral sway but no LOB Coordination: Intact Fine Motor: Intact Visual Tracking: Intact Head Thrust: Corrective saccade with head turn to R Ang[place]-Halpike: On first testing, no nystagmus seen nor report of dizziness or spinning with R/L Ang[place]-Hallpike. Brief short-lived dizziness reported a few minutes after she was placed back onto her back from R- sidelying, Supine Roll Test: Negative Balance: Static Sitting: Fair Dynamic Sitting: Fair Static Standing: Fair Dynamic Standing: Poor Special Tests: Mobility Limitations Standardized Measure [facility] AM-PAC 6 clicks Basic Mobility Inpatient Short Form: Raw Score: 18 CMS Score: 47% deficit Informed Consent/Education: Patient was instructed in purpose of PT consult and plan of care. NEURO RE-ED: -Gaze stabilization exercises with good response -Safe performance of bed mobility and transfers performed ASSESSMENT: Symptom provocation with R side lying and returning to supine from R side lying with report of room spinning sensation. No nystagmus observed through R/L Julio-hallpike and R/L supine head roll test. Patient demonstrated symptoms characteristic of posterior canal canalithiasis. Will retest tomorrow and perform Pancho maneuver accordingly. Further activity was deferred due to patient feeling exhausted and needing to rest. Patient presents with clinical signs and symptoms consistent with current/admitting diagnoses that have resulted to mobility limitations, gait instability, generalized weakness, and overall ADL decline as demonstrated by the following impairment level findings: 1. Impaired sitting/standing balance 2. Impaired activity tolerance 3. Sensation of spinning with R side lying Impairments are contributing to the following functional limitations: 1. Increased completion time for mobility ADL performance 2. Increased risk for falls Patient is assessed as a 01438 moderate complexity based on the following: History: 89-year-old male with past medical history as indicated above Examination: Demonstrable impairment above Presentation: Evolving Decision Makin low complexity Goals: Goals X1 week 1. Supine-Sit independent 2. Sit-Supine independent 3. Sit-Stand independent 4. Stand-Sit independent 5. Bed-Chair independent 6. Chair-Bed independent 7. Independent gait on level surface with use of FWW for at least 300 feet without report of pain nor dyspnea 8. Independent stair negotiation while holding onto bilateral rails for at least 10 steps without report of pain nor dyspnea 9. Independent with home exercise program 10. Good static and dynamic standing balance/tolerance Plan of Care/Treatment Plan: Patient will highly benefit from skilled physical therapy services including neuromuscular re-education, functional mobility training, bed mobility/transfer training, gait and balance training, therapeutic exercises, therapeutic activity, caregiver/staff/family education and training 1x/day, 7 days/week x 1 week. Plan of care has been reviewed with the PHOTOGRAPHIC EQUIPMENT TECHNICIAN providing the service under Physical Therapy direction. Initiate Physical Therapy intervention for strengthening, bed mobility, transfers, gait, stairs, balance training, use of assistive device. DISCHARGE RECOMMENDATIONS: [] Home with no services [] [] Home with services [specify] [X] Home with outpatient PT for re-evaluation and continued vestibular rehab [] SNF for continued rehabilitation [] [] Detention Care [] [] SNF versus LTC based on ability to participate and progress [] TREATMENT CODE/TIME: 39922 x 20 minutes for 1 unit, 27609 x 40 minutes for 3 units (15:09-16:09). Thank you for the opportunity to participate in the care of this patient. Chrissy Gann PT, DPT, CLT [facility] [place], [place]
[2024-10-03] MEDS: predniSONE 20 MG TAB PO (17:02)
--- NOTE | 2024-10-03 18:00 | RT.EKG_ITS ---
APPROVED REPORT Exam: Resting ECG Reason for Exam: chest heaviness Patient Location: I HR:76 bpm ECG Measurements Heart Rate 76 AXIS OK 155 P 23 QRSd 92 QRS 21 QT 367 T 53 QTc 412 Conclusion Sinus rhythm...normal P axis, V-rate Normal Electrocardiogram
[2024-10-03] MEDS: Simethicone 80 MG CHEW 160 MG PO (18:18)
[2024-10-03] MEDS: Polyethylene Glycol 3350 17 GM PACKET PO (18:28)
[2024-10-03] MEDS: Atorvastatin 40 MG TAB PO (21:05)
[2024-10-03] MEDS: LORazepam 20 MG/10 ML VIAL IVP (23:40)
[2024-10-04] VITALS (8 sets, daily range): BP systolic 97–149; BP diastolic 49–76; PULSE 63–88; RESP 16–19; TEMP 36.1–36.9; O2SAT 94–98
[2024-10-04 07:09] LABS: Abs Immature Grans 0.03 10^3/uL (0.0-0.06); Absolute Basophil Count 0.02 10^3/uL (0.0-0.2); Absolute Eosinophil Count 0.02 10^3/uL (0.0-0.7); Absolute Lymphocyte Count 1.14 10^3/uL (1.2-3.4); Absolute Monocyte Count 0.34 10^3/uL (0.1-0.8); Absolute Neutrophil Count 5.67 10^3/uL (1.2-6.7); Basophils % 0.3 %; Eosinophils % 0.3 %; HCT 33.2 % (36.0-46.0); HGB 11.8 g/dL (11.2-15.7); Immature Grans % 0.4 %; Lymphocytes % 15.8 %; MCH 33.1 pg (27.0-33.0); MCHC 35.5 % (32.0-36.0); MCV 93 fL (80-95); MPV 9.7 fL (8.0-11.0); Monocytes % 4.7 %; Neutrophils % 78.5 %; Platelet Count 340 10^3/uL (130-400); RBC 3.56 10^6/uL (3.93-5.22); RDW 11.4 % (11.7-14.6); WBC 7.22 10^3/uL (4.4-10.8)
[2024-10-04 07:13] LABS: Anion Gap 9.7 mmol/L (3-11); BUN 27 mg/dL (7-18); CO2 23.3 mmol/L (21.0-32.0); CREATININE 1.2 mg/dL (0.55-1.02); Calcium 9.5 mg/dL (8.5-10.1); Chloride 89 mmol/L (98-107); Estimated GFR 43.81 (mL/min/1.73m2); Glucose 137 mg/dL (74-106); Magnesium 1.7 mg/dL (1.8-2.4); Potassium 4.9 mmol/L (3.5-5.1)
[2024-10-04 07:18] LABS: Sodium 122 mmol/L (136-145)
[2024-10-04] MEDS: Pantoprazole 20 MG TABCR PO (08:03)
[2024-10-04] MEDS: Mylanta Suspension 30 ML CUP PO ×2 (08:36→14:24)
[2024-10-04] MEDS: predniSONE 20 MG TAB PO (08:42)
[2024-10-04] MEDS: Aspirin 81 MG CHEW PO (08:42)
[2024-10-04] MEDS: LORazepam 0.5 MG TAB PO (08:42)
[2024-10-04] MEDS: amLODIPine 5 MG TAB PO (08:43)
[2024-10-04] MEDS: Enoxaparin 40 MG/0.4 ML SYR SC (08:43)
[2024-10-04] MEDS: Meclizine 25 MG TAB PO (08:43)
[2024-10-04] MEDS: Lisinopril 10 MG TAB PO (08:43)
[2024-10-04] MEDS: Normal Saline Flush 10 ML SYR IVP ×3 (08:44→20:58)
--- NOTE | 2024-10-04 09:41 | CMPROGNOTE_ITS ---
Date of service: 10/04/24 Time of Service: 09:42 Care Management Progress Note Progress Note Text Progress Note Text: Mildred was sitting on the edge of the bed when CM met with her. She informed CM that she had had a terrible day. In addition to her vertigo and headache, Mildred is also constipated and has abdominal discomfort. She stated that she had walked a little but that she is really tired. Mildred's sodium was 122 today and her creatinine is slowly rising a little each day. Mildred admitted to that she is really discouraged. She has been sick since 08/21/24 and can't do many of the things she is used to doing, greatly affecting the quality of her life. Discharge Potential Discharge Needs: PCP F/U Appt Anticipated Barriers to Discharge: None Identified Patient/Family Education Needs: Review discharge instructions, discuss Ask Me Three Transportation: Private vehicle Plan: Anticipate Mildred will be discharged home with outpatient PT when medically cleared. She will follow up with her community providers and plan of care and transport with family. CM will follow and continue to assess for discharge needs.p Social Determinants of Health Screening Social Determinants of health last assessed in clinic: 10/05/24 Will the Patient Participate in the Screening?: Yes Do you worry about having a steady place to live?: yes What is your living situation today?: I have housing today, but am worried about losing it Problems where you live: no known problems In the past 12 months, have you had to go without electric, gas, oil or water in your home?: no 1. Within the past 12 months, we worried whether our food would run out before we got money to buy more.: Never true 2. Within the past 12 months, the food we bought just didn't last and we didn't have money to get more.: Never true Has lack of transportation kept you from medical appointments or from doing things needed for daily living?: no Has anyone in your life made you feel unsafe or unsupported?: no How hard is it for you to pay for the very basics like food, housing, medical care, and heating? Would you say it is:: Not hard at all Do you want help finding or keeping work or a job?: I do not need or want help If for any reason you need help with day-to-day activities such as bathing, preparing meals, shopping, managing finances, etc., do you get the help you ne ed?: I don?t need any help How often do you feel lonely or isolated from those around you?: Never Do you speak a language other than Indonesian at home?: No Does the patient want assistance with any of the above?: No Health Related Social Needs Health related social needs: housing instability, housed, with risk of homelessness (Z59.811) Health related social needs details: very much healthy except when she got this vertigo.
[2024-10-04] MEDS: Acetaminophen 325 MG TAB PO ×2 (11:51→19:23)
--- NOTE | 2024-10-04 12:25 | PGE_ITS ---
Date of Service Date of service: 10/04/24 Time of Service: 12:25 Assessment and Plan Assessment and plan (1) Hypertensive urgency: Status: Resolved Assessment and plan: Continue home meds, she did not need any additional medications for her blood pressure today. BP at time of writing 117/50 (2) Vertigo: Status: Acute Assessment and plan: Patient states she has history of vertigo and takes meclizine daily with occasional ondansetron PT evaluation ordered for Pancho and Julio-Hallpike; patient reports some improvement (3) History of CVA (cerebrovascular accident): Status: Acute Assessment and plan: History of, without residual deficits Continue home aspirin Continue atorvastatin 40 mg daily. (4) Headache: Status: Resolved Assessment and plan: CT scan of the head in ED no acute findings Headache resolved (5) Hyponatremia: Status: Acute Assessment and plan: Soidum 122 Salt tabs 1200 ml/24h fluid restriction Cr 1.2 - trend Exam Narrative Exam Narrative: Constitutional: Alert and oriented x3. Appears stated age. Normal body habitus. Head: Normocephalic, no trauma. Eyes: Pupils PERRL, Red reflex noted, EOM's intact. Eyelids symmetrical without lesions, discharge, or swelling. Chest: RRR, Normal S1, S2, distal pulses intact. Resp: Lungs clear to auscultation bilaterally, no wheezes, rales, or rhonchi. Abdomen: Soft, non-distended, bowel sounds present Musculoskeletal: Normal gait, 5/5 strength to all four extremities. Skin: No suspicious rashes or lesions. Capillary refill less than 2 sec. Neurologic: Cranial nerves II-XII intact. Alert and oriented x 3. Motor: No deficits noted. Sensory: Intact bilaterally all 4 extremities. Hematologic/Lymphatic: No ecchymosis, no lymphadenopathy. Const General: no acute distress Orientation: alert HENOR Head: normal to inspection Ears: external ears normal General nose exam: external nose normal Mouth: moist mucous membranes Eyes General: appearance normal, both eyes and all related structures Neck Neck: normal visual inspection Resp Effort & Inspection: normal respiratory effort and able to speak in complete sentences Auscultation: clear to auscultation bilaterally Cardio Jugular venous pressure: no JVD Rate: regular rate Other: no chest pain GI Palpation: soft and nontender Skin General skin exam: no rashes or lesions noted Neuro General: patient alert and patient oriented x3 Extrem General: normal to inspection Psych Mental Status: mental status grossly normal Objective Last Vital Signs Temp 36.6 C 10/04/24 09:45 Pulse 76 10/04/24 09:45 Resp 16 10/04/24 09:45 BP 134/71 10/04/24 09:45 Pulse Ox 96 10/04/24 09:45 Laboratory Results - last 24 hr 10/04/24 06:37 WBC 7.22 RBC 3.56 L Hgb 11.8 Hct 33.2 L MCV 93 MCH 33.1 H MCHC 35.5 RDW 11.4 L Plt Count 340 MPV 9.7 Immature Gran % 0.4 Neutrophils % 78.5 Lymphocytes % 15.8 Monocytes % 4.7 Eosinophils % 0.3 Basophils % 0.3 Nucleated RBC % 0.0 Absolute Neutrophils 5.67 Absolute Lymphocytes 1.14 L Absolute Monocytes 0.34 Absolute Eosinophils 0.02 Absolute Basophils 0.02 Sodium 122 L* Potassium 4.9 Chloride 89 L Carbon Dioxide 23.3 Anion Gap 9.7 BUN 27 H Creatinine 1.2 H Est GFR (CKD-EPI 2020) 43.81 Glucose 137 H Calcium 9.5 Magnesium 1.7 L Time Spent with Patient Time Spent with Patient: 25-34 minutes Time was spent: preparing to see the patient(eg.review tests), ordering medications,tests, procedures, referring, communicating with other health mall plant caretaker, indepentently interpreting results, counseling the patient and care coordination
--- NOTE | 2024-10-04 13:27 | PHA.REVIEW2 ---
Pharmacy Admission Review Admission Clinical Review Admission Pharmacy Review: History of CVA (cerebrovascular accident) (Acute) Vertigo (Acute) Headache (Acute) Hypertensive urgency (Acute) No Known Allergies Allergy (Unverified 10/02/24 19:45) Resuscitation Status Full Code Height 5 ft 2 in Weight 71.2 kg Pharmacy Admission Review Renal Dosing Renal Dosing: BUN 27 mg/dL (7-18) H 10/04/24 06:37 Creatinine 1.2 mg/dL (0.55-1.02) H 10/04/24 06:37 Medications needing adjustments: Reviewed (CrCl 30.52 mL/min, BUN increased from 19 and SCr increased from 1) List of meds needing interventions: Current medications are okay Anticoagulation Anticoagulation: Hgb 11.8 g/dL (11.2-15.7) 10/04/24 06:37 Hct 33.2 % (36.0-46.0) L 10/04/24 06:37 Plt Count 340 10^3/uL (130-400) 10/04/24 06:37 INR 1.0 (0.9-1.1) 10/02/24 19:45 Creatinine 1.2 mg/dL (0.55-1.02) H 10/04/24 06:37 DVT Prophylaxis: Reviewed (Hgb increased from 10.6) Medications: Enoxaparin (40mg daily) Relevant Labs Relevant Labs: Sodium 122 mmol/L (136-145) L* 10/04/24 06:37 Potassium 4.9 mmol/L (3.5-5.1) 10/04/24 06:37 Chloride 89 mmol/L (98-107) L 10/04/24 06:37 Magnesium 1.7 mg/dL (1.8-2.4) L 10/04/24 06:37 Electrolytes, C-Reactive P, ESR: Reviewed (Na 122 - order added for BID salt supplement) Cardiac Review Cardiac Review: Troponin I 9 ng/L (<or=51) 10/02/24 22:50 NT-Pro-B Natriuret Pep 211 pg/mL (<300) 10/02/24 19:45 Blood Pressure 134/71 0945 Blood Pressure 134/76 0943 Blood Pressure 149/73 0754 Blood Pressure 129/68 0315 BP, HR, EF%: Reviewed (HR WNL) List meds needing interventions: Has orders for amlodipine 5mg daily, hydralazine 10mg IVP q6h PRN - no doses given and lisinopril 10mg daily QTc Review QTc: Reviewed (427 from 10/02/24) IV to PO Switch IV Medications: Reviewed (hydralazine and lorazepam) Home Meds Home Med List reviewed: Reviewed Relevent Home Meds Not ordered & why?: ondansetron (PRN) and chlorthalidone (was ordered but discontinued today by provider) Current Meds Current Medication Order Review: Reviewed
--- NOTE | 2024-10-04 13:34 | PTTR_ITS ---
PT Notes Visit Reasons: HTN Urgency Physical Therapy Inpatient Treatment Note Date: 10/03/2024 Precautions: Fall. Standard. Activity as tolerated. Subjective: Patient was very nauseous and not feeling well having not had her Ativan last night and having not had a bowel movement for a total of 5 days now. Nurse Jose said that patient is not doing too good and that PT may need to be held off. Later in the morning, patient was seen and was agreeable to trying out maneuver for vertigo which may help. OBJECTIVE: Posture: Good upright posturing. Observation: resting in bed. Telemetry monitoring in place Mental Status: A and O x 4 Vital Signs: Closely monitored by nursing staff ROM: Cervical ROM: WFL Strength: Cervical muscle strength:4-/5 Bed Mobility/Transfers: Rolling modified independent Supine to sit modified independent Sit to supine modified independent Sit to stand contact guard assist with FWW Stand to sit contact guard assist with FWW Gait: Covered a total of 30 steps from edege of bed on the L side to window chair to reclining chair on the other side of the room with stand by assist and FWW without symptom exacerbation. Patient complained of fatigue, fulness in chest, and pain in L hip that all subsided with rest. Patient was assisted and made comfortable on chair after session to stay up for lunch. Balance: Static Sitting: Fair Dynamic Sitting: Fair Static Standing: Fair Dynamic Standing: Fair NEURO RE-ED: -Gaze stabilization exercises with good response -Safe performance of bed mobility and transfers performed -R Pancho maneuver done x 1 with daughter and son-in-law watching for caregiver education ASSESSMENT: No reproduction of symptom with R Pancho maneuver done to patient. Patient was seen 1.5 hours after she was given Ativan which patient has been having since a week ago. Has not had a bowel movement since 5 days ago. Again, no nystagmus was observed through R/L [place]-Hallpike and R/L supine head roll test. Was able to walk from edge of bed to chair by the window and from there to recliner chair about 30 steps total for this session without LOB but with report of feeling very weak, fulness in her chest, and pain in L hip which KIKE Acosta and Nurse Student Franck were aware of. Plan of Care/Treatment Plan: Patient will highly benefit from skilled physical therapy services including neuromuscular re-education, functional mobility training, bed mobility/transfer training, gait and balance training, therapeutic exercises, therapeutic activity, caregiver/staff/family education and training 1x/day, 7 days/week x 1 week. Plan of care has been reviewed with the RESEARCH AND DEVELOPMENT RESEARCHER providing the service under Physical Therapy direction. Initiate Physical Therapy intervention for strengthening, bed mobility, transfers, gait, stairs, balance training, use of assistive device. DISCHARGE RECOMMENDATIONS: [] Home with no services [] [] Home with services [specify] [X] Home with HH PT with subsequent outpatient PT for re-evaluation and continued vestibular rehab [] SNF for continued rehabilitation [] [] [facility] [] [] SNF versus LTC based on ability to participate and progress [] TREATMENT CODE/TIME: 54738 x 31 minutes for 2 units (11:19-11:50). Unable to see patient for a second session in the afternoon as Nurse Jose just gave patient a suppository and is attempting a bowel movement on thebtoilet seat when PT came.
[2024-10-04] MEDS: Polyethylene Glycol 3350 17 GM PACKET PO (14:23)
[2024-10-04] MEDS: Bisacodyl 10 MG SUPP PR (14:24)
--- NOTE | 2024-10-04 18:15 | RT.EKG_ITS ---
APPROVED REPORT Exam: Resting ECG Reason for Exam: nausea, vomiting, dizzy Patient Location: I HR:84 bpm ECG Measurements Heart Rate 84 AXIS FL 155 P 30 QRSd 235 QRS 24 QT 353 T 53 QTc 418 Conclusion Sinus rhythm...normal P axis, V-rate 50- 99 Normal Electrocardiogram
[2024-10-04] MEDS: Ondansetron 4 MG/2 ML VIAL IVP (18:32)
[2024-10-04] MEDS: Atorvastatin 40 MG TAB PO (19:23)
[2024-10-04] MEDS: Aspirin 325 MG TAB PO (19:23)
[2024-10-04] MEDS: Salt Supplement (BUFFERED) TAB 1 TAB PO (19:23)
[2024-10-04 19:50] LABS: Troponin I 6 ng/L (<or=51)
[2024-10-04] MEDS: LORazepam 20 MG/10 ML VIAL IVP (20:57)
[2024-10-04] MEDS: Sucralfate 1 GM TAB PO (21:05)
[2024-10-05 03:07] VITALS: BP 124/55; PULSE 71; RESP 18; TEMP 36.2; O2SAT 98
[2024-10-05 06:38] LABS: Abs Immature Grans 0.02 10^3/uL (0.0-0.06); Absolute Basophil Count 0.02 10^3/uL (0.0-0.2); Absolute Eosinophil Count 0.18 10^3/uL (0.0-0.7); Absolute Monocyte Count 0.61 10^3/uL (0.1-0.8); Absolute Neutrophil Count 3.95 10^3/uL (1.2-6.7); Basophils % 0.3 %; HGB 10.2 g/dL (11.2-15.7); Immature Grans % 0.3 %; Lymphocytes % 20.1 %; MCH 33.2 pg (27.0-33.0); MCHC 35.2 % (32.0-36.0); MCV 95 fL (80-95); MPV 9.5 fL (8.0-11.0); Monocytes % 10.2 %; Neutrophils % 66.1 %; Platelet Count 242 10^3/uL (130-400); RBC 3.07 10^6/uL (3.93-5.22); RDW 11.4 % (11.7-14.6); RDW-SD 38.7 fL; WBC 5.98 10^3/uL (4.4-10.8)
[2024-10-05 06:59] LABS: Anion Gap 7.5 mmol/L (3-11); BUN 35 mg/dL (7-18); CO2 26.5 mmol/L (21.0-32.0); CREATININE 1.3 mg/dL (0.55-1.02); Calcium 9.2 mg/dL (8.5-10.1); Chloride 91 mmol/L (98-107); Glucose 106 mg/dL (74-106); Potassium 4.6 mmol/L (3.5-5.1); Sodium 125 mmol/L (136-145)
[2024-10-05 07:38] VITALS: BP 133/66; PULSE 68; RESP 17; TEMP 37.2; O2SAT 97
[2024-10-05] MEDS: Meclizine 25 MG TAB PO (08:45)
[2024-10-05] MEDS: LORazepam 0.5 MG TAB PO (08:45)
[2024-10-05] MEDS: Pantoprazole 20 MG TABCR PO (08:45)
[2024-10-05] MEDS: Enoxaparin 40 MG/0.4 ML SYR SC (08:45)
[2024-10-05] MEDS: Sucralfate 1 GM TAB PO ×4 (08:46→21:40)
[2024-10-05] MEDS: Normal Saline Flush 10 ML SYR IVP ×3 (08:46→21:41)
--- NOTE | 2024-10-05 09:11 | CMPROGNOTE_ITS ---
Date of service: 10/05/24 Time of Service: 09:12 Care Management Progress Note Progress Note Text Progress Note Text: Mildred was sitting up in a chair visiting with her daughter when CM met with her. She stated that she is feeling a slight bit better and that the dizziness and headache are marginally better. Mildred is still concerned about not seeing a neurologist or ENT specialist. Her PCP reportedly ordered referrals for both specialties in [facility]. CM placed a follow up phone call to Mildred's PCP practice to see if there was anything that could expedite the process. CM was assured that the orders were sent just yesterday as urgent and she expected Mildred to hear back soon. CM conveyed the information to Mildred who was relieved that they were definitely in process. Discharge Potential Discharge Needs: PCP F/U Appt Anticipated Barriers to Discharge: Medical Status Patient/Family Education Needs: Review discharge instructions, discuss Ask Me Three Transportation: Private vehicle Plan: Anticipate Mildred will be discharged home with outpatient PT when medically c leared. She will follow up with her community providers and plan of care and transport with family. CM will follow and continue to assess for discharge needs. Social Determinants of Health Screening Social Determinants of health last assessed in clinic: 10/05/24 Will the Patient Participate in the Screening?: Yes Do you worry about having a steady place to live?: yes What is your living situation today?: I have housing today, but am worried about losing it Problems where you live: no known problems In the past 12 months, have you had to go without electric, gas, oil or water in your home?: no 1. Within the past 12 months, we worried whether our food would run out before we got money to buy more.: Never true 2. Within the past 12 months, the food we bought just didn't last and we didn't have money to get more.: Never true Has lack of transportation kept you from medical appointments or from doing things needed for daily living?: no Has anyone in your life made you feel unsafe or unsupported?: no How hard is it for you to pay for the very basics like food, housing, medical care, and heating? Would you say it is:: Not hard at all Do you want help finding or keeping work or a job?: I do not need or want help If for any reason you need help with day-to-day activities such as bathing, preparing meals, shopping, managing finances, etc., do you get the help you need?: I don?t need any help How often do you feel lonely or isolated from those around you?: Never Do you speak a language other than Portuguese at home?: No Does the patient want assistance with any of the above?: No Health Related Social Needs Health related social needs: housing instability, housed, with risk of homelessness (Z59.811) Health related social needs details: very much healthy except when she got this vertigo.
--- NOTE | 2024-10-05 09:38 | W.PM.PROGNOT ---
Date of Service Date of service: 10/05/24 Time of Service: 09:39 Assessment and Plan Assessment and plan (1) Hypertensive urgency: Status: Resolved Assessment and plan: Ongoing home meds, she did not need any additional medications for her blood pressure today. BP at time of writing 117/50 (2) Vertigo: Status: Acute Assessment and plan: Continue meclizine daily with occasional ondansetron. Patient reported a history of vertigo and uses the medicine at home continue PT evaluationfor Pancho and Julio-Hallpike (3) History of CVA (cerebrovascular accident): Status: Acute Assessment and plan: History of, without residual deficits Head/Neck CTA w/o new findings on 10/02/24 in the ED Ongoing home aspirin and atorvastatin [address] Castellanos (4) Headache: Status: Resolved Assessment and plan: As above no further c/o headache (5) Hyponatremia: Status: Acute Assessment and plan: Soidum 125 today IVF NS at 100cc/hr Salt tabs Increase fluid restriction 1000 ml/24h Cr stable Discussed with Dr. Castellanos Subjective Subjective Patient reports: no new complaints, feels better, tolerating liquids well, tolerating a regular diet and no bowel movement; denies diarrhea, nausea, vomiting, shortness of breath or fever Exam Narrative Exam Narrative: Patient in no acute distress, alert oriented x 4, moves all 4 extremities, no neurological focal deficit, S1-S2, no murmur, clear lungs, abdomen is nondistended soft nontender, moves all 4 extremities, no CVA tenderness Objective Last Vital Signs Temp 37.2 C 10/05/24 07:38 Pulse 68 10/05/24 07:38 Resp 17 10/05/24 07:38 BP 133/66 10/05/24 07:38 Pulse Ox 97 10/05/24 07:38 Laboratory Results - last 24 hr 10/04/24 10/05/24 19:16 06:10 WBC 5.98 RBC 3.07 L Hgb 10.2 L Hct 29.0 L MCV 95 MCH 33.2 H MCHC 35.2 RDW 11.4 L Plt Count 242 MPV 9.5 Immature Gran % 0.3 Neutrophils % 66.1 Lymphocytes % 20.1 Monocytes % 10.2 Eosinophils % 3.0 Basophils % 0.3 Nucleated RBC % 0.0 Absolute Neutrophils 3.95 Absolute Lymphocytes 1.20 Absolute Monocytes 0.61 Absolute Eosinophils 0.18 Absolute Basophils 0.02 Sodium 125 L Potassium 4.6 Chloride 91 L Carbon Dioxide 26.5 Anion Gap 7.5 BUN 35 H Creatinine 1.3 H Est GFR (CKD-EPI 2020) 39.80 Glucose 106 Calcium 9.2 Magnesium 2.0 Troponin I 6 Time Spent with Patient Time Spent with Patient: >50 minutes Time was spent: preparing to see the patient(eg.review tests), obtaining and/or reviewing separately otained hiistory, ordering medications,tests, procedures, referring, communicating with other health dialysis patient care technician, indepentently interpreting results, counseling the patient and care coordination
[2024-10-05] MEDS: Acetaminophen 325 MG TAB PO (09:55)
[2024-10-05] MEDS: amLODIPine 5 MG TAB PO (09:56)
[2024-10-05] MEDS: Aspirin 81 MG CHEW PO (09:56)
[2024-10-05] MEDS: Lisinopril 10 MG TAB PO (09:56)
[2024-10-05] MEDS: Salt Supplement (BUFFERED) TAB 1 TAB PO ×2 (09:56→20:24)
[2024-10-05] MEDS: predniSONE 20 MG TAB PO (09:56)
[2024-10-05 10:04] LABS: Troponin I 8 ng/L (<or=51)
--- NOTE | 2024-10-05 10:25 | PTTR_ITS ---
PT Notes Visit Reasons: HTN Urgency Physical Therapy Inpatient Treatment Note Date: 10/05/2024 Precautions: Fall. Standard. Activity as tolerated. Subjective: Repetitively verbalizing my head is heavy, it is heavy. In the morning stated that pain is on top of her head, this afternoon it is in the back of her head. Added I do not have energy the way I had before. Denied any dizziness during transfers and ambulation/positional change with PT. OBJECTIVE: Posture: Good upright posturing. Observation: Resting in bed. Telemetry monitoring in place Mental Status:Alert but has tendency to perseverate on symptoms Vital Signs: After walking 125/61 mmHg, 97% on RA, 77 bpm Bed Mobility/Transfers: Rolling modified independent Supine to sit modified independent Sit to supine modified independent Sit to stand stand by assist with FWW Stand to sit stand by assist with FWW Gait: Covered a total of 150 feet from room through hallway to the PT treatment area using her FWW with no incoordination noted and no report of dizziness. She was able to perform same distance in the afternoon with constant complaint of her head being heavy and full and that she feels like her energy has tremendously waned. No LOB. No SOB. No path deviation. Balance: Static Sitting: Fair Dynamic Sitting: Fair Static Standing: Fair Dynamic Standing: Fair ASSESSMENT: Sodium remains below normal range but has incrased today compared to yesterday. As of today, unsure of BPPV pathology as patient's symptoms have been atypical for peripheral type vertigo. Deferred Pancho maneuver for today with patient's increasing complaint of increasing pressure and heaviness in her head over parietal and occipital areas. Concern or pressure-related head pathology brought up with ROSAURA Joya this afternoon. Hold off on any strenuous activities until cause for sensation of increased pressure and heaviness as well as weakness in neck is determined/addressed. Plan of Care/Treatment Plan: 1-2x/day, 7 days/week x 1 week. Plan of care has been reviewed with the AMBULANCE DRIVER PARAMEDIC providing the service under Physical Therapy direction. Initiate Physical Therapy intervention for strengthening, bed mobility, transfers, gait, stairs, balance training, use of assistive device as tolerated. DISCHARGE RECOMMENDATIONS: [] Home with no services [] [X] Home with services. Patient will benefit from home health PT services in order to progress mobility level using least restrictive assistive ambulatory device, assess home safety, identify additional equipment needs, and establish a functional maintenance program that will increase ability of patient to remain at home. [] Home with outpatient PT [] SNF for continued rehabilitation [] [] [facility] [] [] SNF versus LTC based on ability to participate and progress [] TREATMENT CODE/TIME: Session 1-- 35697 x 15 minutes for 1 unit, 07397 x 10 minutes (10:25-10:50). Session 2--44860 x 38 minutes for 3 units ( 13:21-13:59).
[2024-10-05] MEDS: Normal Saline 1,000 ML 100 ML IV ×2 (11:04→21:30)
[2024-10-05 11:55] VITALS: BP 128/56; PULSE 70; RESP 17; TEMP 36.5; O2SAT 94
[2024-10-05] MEDS: MYLANTA 30 ML, LIDOCAINE 2% VISCOUS UD 15 ML PO (13:18)
[2024-10-05] MEDS: LORazepam 20 MG/10 ML VIAL IVP ×2 (14:56→21:40)
[2024-10-05 15:12] VITALS: BP 113/51; PULSE 83; RESP 17; TEMP 36.8; O2SAT 94
[2024-10-05] MEDS: Mylanta Suspension 30 ML CUP PO ×2 (15:50→21:40)
[2024-10-05 20:22] VITALS: BP 114/53; PULSE 82; RESP 18; TEMP 36.7; O2SAT 96
[2024-10-05] MEDS: Atorvastatin 40 MG TAB PO (20:24)
[2024-10-05] MEDS: Docusate Sodium 100 MG CAP PO (20:25)
[2024-10-05 23:14] VITALS: BP 125/58; PULSE 69; RESP 18; TEMP 36.6; O2SAT 97
[2024-10-06 02:49] VITALS: BP 158/71; PULSE 69; RESP 18; TEMP 36.5; O2SAT 96
[2024-10-06] MEDS: Acetaminophen 325 MG TAB PO ×2 (04:17→21:34)
[2024-10-06 04:36] VITALS: BP 145/69; PULSE 65; O2SAT 96
[2024-10-06 06:30] LABS: Abs Immature Grans 0.03 10^3/uL (0.0-0.06); Absolute Basophil Count 0.01 10^3/uL (0.0-0.2); Absolute Lymphocyte Count 1.16 10^3/uL (1.2-3.4); Absolute Neutrophil Count 4.02 10^3/uL (1.2-6.7); Basophils % 0.2 %; Eosinophils % 1.7 %; HCT 28.5 % (36.0-46.0); HGB 9.7 g/dL (11.2-15.7); Immature Grans % 0.5 %; Lymphocytes % 19.3 %; MCH 32.7 pg (27.0-33.0); MCV 96 fL (80-95); MPV 9.3 fL (8.0-11.0); Monocytes % 11.6 %; Neutrophils % 66.7 %; Platelet Count 222 10^3/uL (130-400); RBC 2.97 10^6/uL (3.93-5.22); RDW 11.6 % (11.7-14.6); RDW-SD 40.9 fL; WBC 6.02 10^3/uL (4.4-10.8)
[2024-10-06 06:43] LABS: Anion Gap 7.5 mmol/L (3-11); BUN 26 mg/dL (7-18); CO2 26.5 mmol/L (21.0-32.0); Calcium 8.6 mg/dL (8.5-10.1); Chloride 95 mmol/L (98-107); Estimated GFR 54.53 (mL/min/1.73m2); Glucose 98 mg/dL (74-106); Potassium 4.7 mmol/L (3.5-5.1); Sodium 129 mmol/L (136-145)
[2024-10-06 07:42] VITALS: BP 126/59; PULSE 69; RESP 20; TEMP 36.2; O2SAT 98
[2024-10-06] MEDS: Salt Supplement (BUFFERED) TAB 1 TAB PO ×2 (08:47→21:13)
[2024-10-06] MEDS: amLODIPine 5 MG TAB PO (08:48)
[2024-10-06] MEDS: Lisinopril 10 MG TAB PO (08:48)
[2024-10-06] MEDS: Aspirin 81 MG CHEW PO (08:48)
[2024-10-06] MEDS: Sucralfate 1 GM TAB PO ×4 (08:48→21:13)
[2024-10-06] MEDS: Pantoprazole 20 MG TABCR PO (08:48)
[2024-10-06] MEDS: Docusate Sodium 100 MG CAP PO ×2 (08:49→21:13)
[2024-10-06] MEDS: predniSONE 20 MG TAB PO (08:49)
[2024-10-06] MEDS: Meclizine 25 MG TAB PO ×3 (08:49→21:14)
[2024-10-06] MEDS: Normal Saline Flush 10 ML SYR IVP (08:49)
[2024-10-06] MEDS: Enoxaparin 40 MG/0.4 ML SYR SC (08:49)
[2024-10-06] MEDS: Normal Saline 1,000 ML 100 ML IV ×2 (08:50→21:40)
--- NOTE | 2024-10-06 09:12 | PDOC.CMPRO ---
Date of service: 10/06/24 Time of Service: 09:12 Care Management Progress Note Progress Note Text Progress Note Text: Mildred was sitting up in a chair visiting with her daughter and son-in-law when CM met with her. She was smiling and joking and appeared to be in good spirits. She stated that she is feeling much, much better and that her vertigo has not been too bad today. PT has been working with her performing the Pancho maneuver and Mildred feels it is helping. Mildred had started to fill out Healthcare Agent Forms but had not finalized them. Her daughter Nadia brought them in and CM was able to help with their completion and filing. Mildred was provided with extra copies for her agents and PCP. Discharge Potential Discharge Needs: PCP F/U Appt Anticipated Barriers to Discharge: Medical Status Patient/Family Education Needs: Review discharge instructions, discuss Ask Me Three Transportation: Private vehicle Plan: Anticipate Mildred will be discharged home with outpatient PT when medically cleared. She will follow up with her community providers and plan of care and transport with family. CM will follow and continue to assess for discharge needs. Social Determinants of Health Screening Social Determinants of health last assessed in clinic: 10/06/24 Will the Patient Participate in the Screening?: Yes Do you worry about having a steady place to live?: yes What is your living situation today?: I have housing today, but am worried about losing it Problems where you live: no known problems In the past 12 months, have you had to go without electric, gas, oil or water in your home?: no 1. Within the past 12 months, we worried whether our food would run out before we got money to buy more.: Never true 2. Within the past 12 months, the food we bought just didn't last and we didn't have money to get more.: Never true Has lack of transportation kept you from medical appointments or from doing things needed for daily living?: no Has anyone in your life made you feel unsafe or unsupported?: no How hard is it for you to pay for the very basics like food, housing, medical care, and heating? Would you say it is:: Not hard at all Do you want help finding or keeping work or a job?: I do not need or want help If for any reason you need help with day-to-day activities such as bathing, preparing meals, shopping, managing finances, etc., do you get the help you need?: I don?t need any help How often do you feel lonely or isolated from those around you?: Never Do you speak a language other than Indonesian at home?: No Does the patient want assistance with any of the above?: No Health Related Social Needs Health related social needs: housing instability, housed, with risk of homelessness (Z59.811) Health related social needs details: very much healthy except when she got this vertigo.
--- NOTE | 2024-10-06 11:01 | PTTR_ITS ---
PT Notes Visit Reasons: HTN Urgency Physical Therapy Inpatient Treatment Note Date: 10/06/2024 Precautions: Fall. Standard. Activity as tolerated. Subjective: Said that her head goes heavy and she becomes dizzy when she turns to both right and left side now, not just the R. No report of dizziness sitting and standing up, same for when she walks. Repeatedly verbalized while walking my head is so heavy, I feel so weak, I have lost my energy. Daughter Nadia was there later in the afternoon and had questions for the hospitalist about the possibility of water in patient's brain/head causing all her symptoms. OBJECTIVE: Posture: Good upright posturing. Observation: Resting in bed. Telemetry monitoring in place. Sodium supplement through IV on R UE. Mental Status:Alert but has tendency to perseverate on symptoms Vital Signs: After walking 152/73 mmHg, 98% on RA, 76 bpm Bed Mobility/Transfers: Rolling modified independent Supine to sit modified independent Sit to supine modified independent Sit to stand stand by assist with FWW Stand to sit stand by assist with FWW Gait: Covered a total of 600 feet with increased speed compared to yesterday using her FWW with no incoordination noted nor report of dizziness. She was able to perform same distance in the afternoon with constant complaint of her head being heavy and full and that she feels like her energy has tremendously waned. No LOB. No SOB. No path deviation. Stairs: Guided patient with stair negotiation of 3 x 6-inch steps and 2 x 4 =inch steps while holding onto B rails with report of same heaviness and head accompanied by weakness. NEURO RE-ED: Performed 1 rep of the R Pancho maneuver again with report of brief (about 1 min [place]) increased dizziness when patient was turned to L sidelying after head was turned to 45 degrees L for 2 minutes needing minimal assist from PT to sustain position in L S/L. No other complaints after maneuver. Patient was comfortably assisted with chair positioning after session. Balance: Static Sitting: Good Dynamic Sitting: Good Static Standing: Fair Dynamic Standing: Fair ASSESSMENT: Rhomberg test was positive with increased unsteadiness and increased mediolateral sway but no LOB/fall. Sodium remains below normal range but has increased today compared to previous 2 days. As of today, unsure of BPPV pathology as patient's symptoms have been atypical for peripheral type vertigo. Deferred the Pancho in the afternoon as asession as held per request of daughter who wanted to talk with hospitalist first for further testing. Concern or pressure-related head pathology was again brought up with RAILROAD COOK Mahnaz this afternoon. Plan of Care/Treatment Plan: 1-2x/day, 7 days/week x 1 week. Plan of care has been reviewed with the BRIDGES AND BUILDINGS SUPERVISOR providing the service under Physical Therapy direction. Initiate Physical Therapy intervention for strengthening, bed mobility, transfers, gait, stairs, balance training, use of assistive device as tolerated. DISCHARGE RECOMMENDATIONS: [] Home with no services [] [X] Home with services. Patient will benefit from home health PT services in order to progress mobility level using least restrictive assistive ambulatory device, assess home safety, identify additional equipment needs, and establish a functional maintenance program that will increase ability of patient to remain at home. [] Home with outpatient PT [] SNF for continued rehabilitation [] [] [facility] [employer] [facility] [] [] SNF versus LTC based on ability to participate and progress [] TREATMENT CODE/TIME: 95758 x 34 minutes for 2 units (11:01-11:35). No charge for short discussion with daughter and patient for 10 minutes from 14:45-14:55.
[2024-10-06 11:21] VITALS: BP 135/58; PULSE 73; RESP 16; TEMP 36.6; O2SAT 97
--- NOTE | 2024-10-06 12:29 | PGE_ITS ---
Date of Service Date of service: 10/06/24 Time of Service: 12:29 Assessment and Plan Assessment and plan (1) Hypertensive urgency: Status: Resolved Assessment and plan: continue g home meds, she did not need any additional medications for her blood pressure after stabilization in the ED continue to monitor VS (2) Vertigo: Status: Acute Assessment and plan: Increasing meclizine dosing; patient reported a history of vertigo and uses the medicine at home Continue PRN ondansetron. Ongoing PT evaluation for Pancho and Julio-Hallpike Neurology referral at d/c (3) History of CVA (cerebrovascular accident): Status: Acute Assessment and plan: History of CVA without residual deficits Head/Neck CTA w/o new findings on 10/02/24 in the ED Past work-up at outside facility when came back from [place] w/o findings of acute stroke as per patient Ongoing home aspirin and atorvastatin 40 mg daily. (4) Headache: Status: Resolved Assessment and plan: As above no further c/o headache (5) Hyponatremia: Status: Acute Assessment and plan: Sodium 129 from 125 today IVF NS at 100cc/hr Ongoing Salt tabs Continue fluid restriction 1000 ml/24h Cr stable BMP in AM Discussed with Dr. Castellanos Subjective Subjective Patient reports: no new complaints, feels better, tolerating liquids well, tolerating a regular diet and no bowel movement; denies diarrhea, nausea, vomiting, shortness of breath or fever Exam Narrative Exam Narrative: Patient in no acute distress, alert oriented x 4, moves all 4 extremities, no neurological focal deficit, S1-S2, no murmur, clear lungs, abdomen is nondistended soft nontender, moves all 4 extremities, no CVA tenderness Objective Last Vital Signs Temp 36.6 C 10/06/24 11:21 Pulse 73 10/06/24 11:21 Resp 16 10/06/24 11:21 BP 135/58 L 10/06/24 11:21 Pulse Ox 97 10/06/24 11:21 Laboratory Results - last 24 hr 10/06/24 06:16 WBC 6.02 RBC 2.97 L Hgb 9.7 L Hct 28.5 L MCV 96 H MCH 32.7 MCHC 34.0 RDW 11.6 L Plt Count 222 MPV 9.3 Immature Gran % 0.5 Neutrophils % 66.7 Lymphocytes % 19.3 Monocytes % 11.6 Eosinophils % 1.7 Basophils % 0.2 Nucleated RBC % 0.0 Absolute Neutrophils 4.02 Absolute Lymphocytes 1.16 L Absolute Monocytes 0.70 Absolute Eosinophils 0.10 Absolute Basophils 0.01 Sodium 129 L Potassium 4.7 Chloride 95 L Carbon Dioxide 26.5 Anion Gap 7.5 BUN 26 H Creatinine 1.0 Est GFR (CKD-EPI 2020) 54.53 Glucose 98 Calcium 8.6 Time Spent with Patient Time Spent with Patient: >50 minutes Time was spent: preparing to see the patient(eg.review tests), obtaining and/or reviewing separately otained hiistory, ordering medications,tests, procedures, referring, communicating with other health director medicare sales, indepentently interpreting results, counseling the patient and care coordination
[2024-10-06 14:18] LABS: Sodium 128 mmol/L (136-145)
[2024-10-06 15:01] VITALS: BP 134/51; PULSE 87; RESP 20; TEMP 36.9; O2SAT 97
[2024-10-06 19:50] VITALS: BP 141/65; PULSE 85; RESP 22; TEMP 36.5; O2SAT 96
[2024-10-06] MEDS: Atorvastatin 40 MG TAB PO (21:13)
[2024-10-06] MEDS: Polyethylene Glycol 3350 17 GM PACKET PO (21:34)
[2024-10-06] MEDS: Mylanta Suspension 30 ML CUP PO (21:35)
[2024-10-06] MEDS: LORazepam 0.5 MG TAB PO (21:35)
[2024-10-07] MEDS: LORazepam 1 MG TAB PO (03:27)
[2024-10-07 03:29] VITALS: BP 122/101; PULSE 79; RESP 20; TEMP 36.5; O2SAT 96
[2024-10-07 05:54] LABS: Abs Immature Grans 0.03 10^3/uL (0.0-0.06); Absolute Basophil Count 0.02 10^3/uL (0.0-0.2); Absolute Lymphocyte Count 1.34 10^3/uL (1.2-3.4); Absolute Monocyte Count 0.74 10^3/uL (0.1-0.8); Absolute Neutrophil Count 4.51 10^3/uL (1.2-6.7); Basophils % 0.3 %; Eosinophils % 1.5 %; HCT 29.3 % (36.0-46.0); HGB 9.8 g/dL (11.2-15.7); Immature Grans % 0.4 %; Lymphocytes % 19.9 %; MCH 32.5 pg (27.0-33.0); MCHC 33.4 % (32.0-36.0); MCV 97 fL (80-95); MPV 9.4 fL (8.0-11.0); Neutrophils % 66.9 %; Platelet Count 242 10^3/uL (130-400); RBC 3.02 10^6/uL (3.93-5.22); RDW 11.8 % (11.7-14.6); RDW-SD 41.8 fL; WBC 6.74 10^3/uL (4.4-10.8)
[2024-10-07 06:01] LABS: Anion Gap 7.5 mmol/L (3-11); BUN 19 mg/dL (7-18); CO2 25.5 mmol/L (21.0-32.0); CREATININE 0.9 mg/dL (0.55-1.02); Calcium 8.7 mg/dL (8.5-10.1); Chloride 104 mmol/L (98-107); Estimated GFR 61.87 (mL/min/1.73m2); Glucose 94 mg/dL (74-106)
[2024-10-07 06:08] LABS: Potassium 4.4 mmol/L (3.5-5.1)
[2024-10-07 06:09] LABS: Sodium 137 mmol/L (136-145)
[2024-10-07 07:13] VITALS: BP 160/82; PULSE 81; RESP 20; TEMP 36.7; O2SAT 96
[2024-10-07] MEDS: amLODIPine 5 MG TAB PO (08:10)
[2024-10-07] MEDS: predniSONE 20 MG TAB PO (08:10)
[2024-10-07] MEDS: LORazepam 0.5 MG TAB PO (08:10)
[2024-10-07] MEDS: Pantoprazole 20 MG TABCR PO (08:10)
[2024-10-07] MEDS: Meclizine 25 MG TAB PO (08:10)
[2024-10-07] MEDS: Sucralfate 1 GM TAB PO ×2 (08:10→11:46)
[2024-10-07] MEDS: Aspirin 81 MG CHEW PO (08:10)
[2024-10-07] MEDS: Lisinopril 10 MG TAB PO (08:10)
[2024-10-07] MEDS: Salt Supplement (BUFFERED) TAB 1 TAB PO (08:10)
[2024-10-07] MEDS: Docusate Sodium 100 MG CAP PO (08:10)
[2024-10-07] MEDS: Normal Saline Flush 10 ML SYR IVP (08:11)
[2024-10-07] MEDS: Enoxaparin 40 MG/0.4 ML SYR SC (08:31)
--- NOTE | 2024-10-07 10:59 | PTTR_ITS ---
PT Notes Visit Reasons: HTN Urgency Inpatient Physical Therapy Treatment Note [facility] Date: 10/07/24 PRECAUTIONS:standard SUBJECTIVE: Mildred states that she continues to feel off. She has dizziness when lying on her side, getting in or out of bed. Symptoms initially began in August when transitioning into bed, with brief room spinning dizziness occurring. This has persisted with specific movements since that time. She is unable to recall any illness preceding. Denies tinnitus or hearing loss. Endorses significant changes in her balance and energy levels. OBJECTIVE: ? PAIN: Chronic left hip pain, pressure in her head Neuromuscular Re-education (23883w6): Activities that facilitate re-education of movement balance, posture, coordination, and proprioception or kinesthetic sense, requiring skilled tactile and verbal cues ? BED MOBILITY/TRANSFERS? Rolling L/R: Supervision Supine-sit: Supervision ? Sit-supine: Supervision ? Sit-stand: Supervision? Stand-sit: Supervision ? Bed-Chair: Supervision with FWW ? GAIT? ? : Ambulates 400 feet with FWW, SBA. In patient room, she is able to ambulate without AD, with supervision only, although with decreased gait speed and reaching for furniture.? BALANCE: [place] Sensory Organization Performance Test for Vestibulopathy: Position 1 (Rhomberg): sway Position 2 (Rhomberg, eyes closed): near-fall (requires min A recovery after 2 seconds in position) Position 3 (modified tandem): sway Position 4 (modified tandem, eyes closed): unable Position 5 (stand on foam): defer Position 6 (stand on foam, eyes closed): defer Position 7 (Fukuda): unable to perform unsupported march- defer eyes closed ? [place]-Hallpike: Negative left; markedly positive to the right with right torsional nystagmus x 20 seconds. [place] and [place]: Negative Lateral body test: Negative for dizziness, although with low amplitude horizontal nystagmus noted Test of skew: Negative Head thrust: Unable to maintain fixation to other side Resting nystagmus: Negative Treatment: Performed horizontal hybrid rescue maneuver for 1 repetition, 90 second holds without notable dizziness Performed right Pancho maneuver for 3 repetitions, 90 second holds in each position. Initially requires significant support due to severity of symptoms, although is entirely asymptomatic on third repetition. Following canalith repositioning techniques, instructed patient in balance retraining activities as follows: Small base of support standing without upper extremity support, 30 seconds Standing march with fingertip support, 30 seconds Ambulation with handhold assist 30 feet x 2 ASSESSMENT/PLAN : Persistent dizziness and imbalance, with signs and symptoms consistent with right BPPV?PC. Treated with Pancho maneuver today, and will observe posttreatment precautions for 24 hours (sleep with head elevated and avoid quick head movements). Follow-up tomorrow for reevaluation. TREATMENT CODE/TIME: 99397 x 5 ([id number]) DISCHARGE RECOMMENDATION: Home with outpatient PT for continued vestibular rehabilitation Haley Cerrato, PT, DPT, [facility]
[2024-10-07 11:31] VITALS: BP 169/71; PULSE 82; RESP 18; TEMP 36.6; O2SAT 97
[2024-10-07 12:00] VITALS: PULSE 86
--- NOTE | 2024-10-07 12:39 | DSE_ITS ---
Date of service: 10/07/24 Time of Service: 12:39 DS: Diagnosis Discharge Diagnosis (1) Hypertensive urgency: Status: Resolved (2) Vertigo: Status: Acute (3) History of CVA (cerebrovascular accident): Status: Acute (4) Headache: Status: Resolved (5) Hyponatremia: Status: Acute Discharge Plan Disposition Patient Disposition: Home W/Home Health Services Condition: Improving Discharge Details Reason For Visit: HTN Urgency Admit Date/Time: 10/02/24 21:11 Admit Provider: Mehdi Hutchinson Attending Provider: Mehdi Hutchinson Primary Care Provider: Yvette Odom Hospital Course Hospital Course: This 89yo female patient with PMH hypertension, vertigo and CVA who presented to the emergency department on 10/02/24 with issues with her blood pressure and headaches. Reported that she was seen at [facility] and had testing including MRI having seen teleneurology and her blood pressure medications adjusted but decided to come [facility] today for further evaluation given ongoing elevated blood pressures and headaches. Reported compliance with her home scheduled and PRN antihypertensive medicines.The physical exam was normal with an NIH of 0 and normal vital signs with the exception of an initial systolic blood pressure of 221 which improved on its own without any intervention. The head CTA showed no acute findings. CBC and CMP were also unremarkable except for Na 128. Despite patient's blood pressure having improved she continued to have headache and dizziness and given ongoing issues with her blood pressure control it was thought best for her to remain hospitalized. the hospitalist admitted the patient with hypertensive urgency and vertigo. Further hyponatremia developed with Na 122 most likely related to increased thirst and water intake which resolved with fluid restriction and IV normal saline. Hyponatremia laboratory studies ordered and pending. The patient remained hemodynamically stable on her home medicine regimen w/o furhter c/o headache at the time of discharge. Vertigo improved with meclizine and PT who recommended home health PT but the patient would rather have outpation PT for continued vestibular rehabilitation. Recommendation for PCP follow-up: Hyponatremia work-up if persisting Neurology referral sent Discussed with Dr. Castellanos Home Meds and New Rx's Prescriptions: New meclizine 25 mg Tablet 25 mg PO TID Qty: 30 0RF sucralfate 1 gram Tablet 1 g PO AC & HS Qty: 60 0RF acetaminophen 500 mg capsule 1,000 mg PO Q8H PRN PRNQty: 30 0RF Continued amlodipine 5 mg tablet 5 mg PO DAILY chlorthalidone 25 mg tablet 25 mg PO DAILY pantoprazole 20 mg tablet,delayed release (DR/EC) 20 mg PO DAILY lisinopril 10 mg tablet 10 mg PO DAILY prednisone 20 mg tablet 20 mg PO DAILY Rx Instructions: for 5 days, started 6/2 aspirin [Jalil Aspirin] 325 mg tablet 325 mg PO DAILY cetirizine [24Hour Allergy] 10 mg tablet 10 mg PO DAILY PRN hydralazine 10 mg tablet 10 mg PO ONCE lorazepam [Ativan] 0.5 mg tablet 0.5 mg PO DAILY ondansetron 4 mg tablet,disintegrating 4 mg PO DAILY Tylenol Extra Strength 500 mg powder in packet 500 mg PO ONCE Discontinued meclizine [Antivert] 25 mg tablet,chewable 25 mg PO DAILY Discharge Instructions Stand Alone Forms: Nursing Discharge Form Referrals: Yvette Odom MD [Primary Care Provider] - (Follow-up with 7 days of discharge please. I called your pcp and let voicemail asking them to call you for a follow up appointment in 1-2 weeks. ) Delores Angeles MD [ [facility] STAFF PHYSICIAN] - (Referral s/p admission for vertigo- Hx of CVA. I called the office and left a voicemail; asking them to call you for a follow up appointment in 1-2 weeks. ) Activity:: Activity as Tolerated Equipment/Supplies:: Walker Diet:: heart healthy Discharge Orders Discharge Orders: Discharge Order (Routine); Ordered 10/07/24 Ordered By: Mahnaz Ayala DS: Summary Time Spent with Patient providing and/or coordinating discharge services: Greater than 30 minutes Status at Discharge Functional status at discharge: independent ambulation Overall status at discharge: patient is progressing back to baseline Mental Status: mental status grossly normal Speech and Movement: speech and movement normal Mood: congruent mood Affect: normal affect Quality:SDOH Health Related Social Needs: Health related social needs housing instability, house d, with risk of homelessness (Z59.811) Health related social needs details very much healthy except when she got this vertigo. Health related social needs details: very much healthy except when she got this vertigo. Exam Narrative Exam Narrative: Patient in no acute distress, alert oriented x 4, moves all 4 extremities, no neurological focal deficit, S1-S2, no murmur, clear lungs, abdomen is nondistended soft nontender, moves all 4 extremities, no CVA tenderness Psych Mental Status: mental status grossly normal Speech and Movement: speech and movement normal Mood: congruent mood Affect: normal affect DS: Data Vitals/I&O Vitals and I&O: Vital Signs Temperature 36.6 C 10/07/24 11:31 Temperature Source Temporal Artery Scan 10/07/24 07:13 Pulse 86 10/07/24 12:00 Pulse 83 10/02/24 21:20 Respiratory Rate 18 10/07/24 11:31 Respiratory Effort Normal 10/02/24 22:00 Respiratory Depth Normal 10/02/24 22:00 Respiratory Pattern Normal 10/02/24 22:00 Blood Pressure 169/71 H 10/07/24 11:31 Blood Pressure Mean 103 10/07/24 11:31 Pulse Oximetry 97 10/07/24 11:31 Oxygen Delivery Method Room Air 10/07/24 11:31 Oxygen Flow Rate 0 10/07/24 11:31 Pain Level 0 10/07/24 03:29 Comment Pt refused 10/07/24 00:29 Intake & Output 10/06/24 10/07/24 10/07/24 23:59 11:59 23:59 Intake Total 1680 / 2900 1000 / 1180 180 / 1180 Output Total 550 / 850 400 / 400 Balance 1130 / 2050 600 / 780 180 / 780 Intake: IV 1000 / 2000 1000 / 1010 10 / 1010 Oral 680 / 900 170 / 170 Output: Urine 550 / 850 400 / 400 Other: Urine Color Pale Yellow Urine Appearance Clear Clear Urine Odor None Normal Stool Size Moderate Stool Characteristics Soft Data Completed and Pending Labs on day of discharge: Labs from last 24 hours 10/07/24 10/07/24 10/06/24 09:07 05:28 13:50 WBC 6.74 RBC 3.02 L Hgb 9.8 L Hct 29.3 L MCV 97 H MCH 32.5 MCHC 33.4 RDW 11.8 Plt Count 242 MPV 9.4 Immature Gran % 0.4 Neutrophils % 66.9 Lymphocytes % 19.9 Monocytes % 11.0 Eosinophils % 1.5 Basophils % 0.3 Nucleated RBC % 0.0 Absolute Neutrophils 4.51 Absolute Lymphocytes 1.34 Absolute Monocytes 0.74 Absolute Eosinophils 0.10 Absolute Basophils 0.02 Sodium 137 D 128 L Potassium 4.4 Chloride 104 Carbon Dioxide 25.5 Anion Gap 7.5 BUN 19 H Creatinine 0.9 Est GFR (CKD-EPI 2020) 61.87 Glucose 94 Serum Osmolality Pending Calcium 8.7 Magnesium 2.0 PFSH All Active Problems (Updated 10/04/24 @ 17:39 by Ivette Ruiz NP) Hyponatremia (Acute) History of CVA (cerebrovascular accident) (Acute) Vertigo (Acute) Uncontrolled hypertension (Acute) Social History Smoking risk assessment performed?: No Drug use: Never Substance use type: does not use Housing: house Do you feel safe at home: Yes Do you feel safe in your relationship?: Yes Time Spent with Patient Time Spent with Patient: 70-84 minutes4 Time was spent: preparing to see the patient(eg.review tests), obtaining and/or reviewing separately otained hiistory, ordering medications,tests, procedures, referring, communicating with other health animal caregiver, indepentently interpreting results, counseling the patient and care coordination
--- NOTE | 2024-10-07 14:33 | PT.INTREAT ---
PT Notes Visit Reasons: HTN Urgency SUBJECTIVE: Mildred requested follow up this afternoon prior to planned discharge. Verbalizes apprehension about returning home, and wondering how to complete Pancho maneuver at home. Has questions about follow up care and home activities. OBJECTIVE:? Neuro Re-education - (11885 x1) to improve balance, coordination, kinesthetic and proprioceptive sensations. ? Treatment: Met with Mildred, her daughter and son-in-law for 15 minutes. Reviewed treatment that Mildred received this morning. Do not recommend home performance of Pancho. Encouraged that symptoms should be resolved given her response, and that for safety, Pancho can be guided in the clinic if further treatment required. Recommend outpatient vestibular rehab upon discharge. Reviewed precautions; will sleep with head slightly elevated tonight and avoid quick head movements and bending over. May resume normal movements tomorrow. Encourage use of walker at home for the next couple days, weaning from it as she feels comfortable. She's planning to picker tender helper a tub bench on her way home for safety showering. Total Treatment Time: 15 minutes CC:
--- NOTE | 2024-10-07 15:50 | CMDISCH_ITS ---
Date of service: 10/07/24 Time of Service: 15:00 LACE Index Scoring Tool Questions: Length of Stay (in days): 4 - 6 Was the patient admitted via the E.D.?: Yes Comorbidities: Cerebrovascular Disease E.D. Visits: 1 Answers: Total Score: 9 Risk of Readmission: Low Risk Care Management Discharge Plan Reason for Hospitalization: hypertensive urgency Discharge Plan: Mildred was discharged today with no new services. She will f/u with her PCP, neurology and outpatient PT. Mildred was transported home by family. Patient/Family Education Needs: Review of discharge instructions, activity, limitations, and discuss ask me 3. SDOH Health Related Social Needs: Health related social needs housing instability, house d, with risk of h omelessness (Z59.811) Health related social needs details very much healthy except when she got this vertigo. Health related social needs details: very much healthy except when she got this vertigo.
[2024-10-07 22:25] LABS: Osmolality Serum 283 mOsm/kg (275-295)
== END 2024-10-07 15:05 | disposition home health service (06) | DRG 305 ==
LOC: ER 21:04 → MS 21:52
PROVIDERS: Nurse Practitioner Family; Admitting Provider Family Medicine; Emergency Provider Emergency Medicine; PCP Physician Assistant; Responsible Provider Nurse Practitioner Acute Care; Visit Provider Family Medicine
DX: I16.0 Hypertensive urgency (principal); E87.1 Hypo-osmolality and hyponatremia; R42 Dizziness and giddiness; Z86.73 Personal history of transient ischemic attack (TIA), and cerebral infarction without residual deficits; I10 Essential (primary) hypertension; R51.9 Headache, unspecified; R11.2 Nausea with vomiting, unspecified; R07.89 Other chest pain
CPT/HCPCS: 00123; 36415; 70496; 70498; 80048; 80053; 83690; 84145; 85027; 93005; 97110; 97112; 97162; 97530; 99285; J1650; 81003; 83735; 83880; 83930; 84295; 84484; 85025; 85610; 85730; 93010; 99223; 99232; 99233; 99239; J1885; J2060; J2405; J3490; J7512

== ENCOUNTER → 2024-10-24 13:44 | Outpatient (BNVA) | payer MEDICARE, SELFPAY | PROVIDERS: PCP Physician Assistant; Referring Provider Physician Assistant; Visit Provider Psychiatry & Neurology Neurology | DX: R25.1 Tremor, unspecified (principal); H81.10 Benign paroxysmal vertigo, unspecified ear; R26.89 Other abnormalities of gait and mobility; F41.9 Anxiety disorder, unspecified; R53.1 Weakness; R51.9 Headache, unspecified; M54.12 Radiculopathy, cervical region; I65.21 Occlusion and stenosis of right carotid artery; I10 Essential (primary) hypertension | CPT/HCPCS: 99215; G2212 ==

== ENCOUNTER → 2025-01-08 08:08 | Outpatient (BNVA) | payer MEDICARE, SELFPAY | PROVIDERS: PCP Physician Assistant; Referring Provider Physician Assistant; Visit Provider Psychiatry & Neurology Neurology | DX: G56.01 Carpal tunnel syndrome, right upper limb (principal); G56.21 Lesion of ulnar nerve, right upper limb; R53.1 Weakness; R42 Dizziness and giddiness; R25.1 Tremor, unspecified; I65.21 Occlusion and stenosis of right carotid artery; I10 Essential (primary) hypertension | CPT/HCPCS: 99215 ==